=== PATIENT | female | born 1955 | race Caucasian/White ===

== ENCOUNTER → 2019-04-12 09:03 | Outpatient (CLI) | payer MEDICARE, OTHER, SELFPAY ==
[2019-04-12 10:05] LABS: Hematocrit 42.2 % (36-46); Hemoglobin 14.1 g/dL (12.0-16.0); Mean Corpuscular HGB Conc 33.5 % (30-36); Mean Corpuscular Hemoglobin 29.2 PG (26-34); Platelet Count 305 X10^3/uL (150-400); Red Blood Cell Count 4.85 X10^6/uL (4.0-5.2); Red Cell Distribution Width 14.4 % (11.6-14.8); White Blood Cell Count 6.8 X10^3/uL (4.5-11.0)
[2019-04-12 10:36] LABS: Alanine Aminotransferase 29 IU/L (9-52); Albumin 4.1 g/dL (3.5-5.0); Albumin Globulin Ratio 1.3 (1.0-2.8); Alkaline Phosphatase 67 U/L (38-126); Aspartate Aminotransferase 33 IU/L (14-36); BUN Creatinine Ratio 26.7 (6-22); Bilirubin Total 0.6 mg/dL (0.2-1.3); Blood Urea Nitrogen 16 mg/dL (7-17); Calcium 9.4 mg/dL (8.4-10.2); Carbon Dioxide 29 mmol/L (22-32); Chloride 104 mmol/L (98-107); Cholesterol 170 mg/dL (140-199); Estimated Glomerular Filt Rate > 60.0 mL/min (>60); Globulin 3.1 g/dL (1.7-4.1); Glucose 100 mg/dL (80-110); HDL Cholesterol 66 mg/dL (40-60); HEMOLYSIS < 15 (0-50); LDL Cholesterol Calculated 91 mg/dL (<100); Potassium 4.1 mmol/L (3.4-5.1); Sodium 140 mmol/L (137-145); Total Protein 7.2 g/dL (6.3-8.2); Triglycerides 64 mg/dL (35-150)
[2019-04-12 10:47] LABS: Hemoglobin A1C% w Est Avg Glu 5.4 % (4.0-6.0)
[2019-04-12 11:38] LABS: Thyroid Stimulating Hormone 1.75 uIU/mL (0.47-4.68)
== END ==
PROVIDERS: Family Provider Physician Assistant; PCP Physician Assistant; Visit Provider Nurse Practitioner Family
DX: E03.9 Hypothyroidism, unspecified (principal); R73.01 Impaired fasting glucose; Z13.6 Encounter for screening for cardiovascular disorders
CPT/HCPCS: 80053; 80061; 83036; 84439; 84443; 85027

== ENCOUNTER → 2019-08-04 08:19 | Outpatient (CLI) | payer MEDICARE, OTHER, SELFPAY ==
[2019-08-04 09:34] LABS: Add Manual Diff / Slide Review NO; Basophils Absolute Auto 0 /uL (0-100); Basophils Percent Auto 0.7 % (0-2); Eosinophils Absolute Auto 300 /uL (0-450); Eosinophils Percent Auto 3.6 % (2-4); Hematocrit 42.3 % (36-46); Hemoglobin 14.3 g/dL (12.0-16.0); Lymphocytes Absolute Auto 2400 /uL (1100-4500); Mean Corpuscular HGB Conc 33.9 % (30-36); Mean Corpuscular Hemoglobin 29.4 PG (26-34); Mean Corpuscular Volume 86.6 fL (80-100); Monocytes Absolute Auto 600 /uL (0-900); Monocytes Percent Auto 8.2 % (3-14); Neutrophils Absolute Auto 3900 /uL (1500-7000); Neutrophils Percent Auto 54.5 % (50-75); Platelet Count 305 X10^3/uL (150-400); Red Blood Cell Count 4.88 X10^6/uL (4.0-5.2); Red Cell Distribution Width 14.3 % (11.6-14.8); White Blood Cell Count 7.2 X10^3/uL (4.5-11.0)
[2019-08-04 09:46] LABS: BUN Creatinine Ratio 23.3 (6-22); Blood Urea Nitrogen 14 mg/dL (7-17); Calcium 9.6 mg/dL (8.4-10.2); Carbon Dioxide 29 mmol/L (22-32); Chloride 104 mmol/L (98-107); Estimated Glomerular Filt Rate > 60.0 mL/min (>60); Glucose 103 mg/dL (80-110); HEMOLYSIS < 15 (0-50); Potassium 4.1 mmol/L (3.4-5.1); Sodium 139 mmol/L (137-145)
[2019-08-04 10:08] LABS: Thyroid Stimulating Hormone 3.71 uIU/mL (0.47-4.68)
== END ==
PROVIDERS: PCP Physician Assistant; Visit Provider Physician Assistant
DX: Z01.818 Encounter for other preprocedural examination (principal)
CPT/HCPCS: 36415; 80048; 84443; 85025; 93005; 93010

== ENCOUNTER → 2020-08-23 08:12 | Outpatient (CLI) | payer MEDICARE, OTHER, SELFPAY ==
[2020-08-23 09:33] LABS: Add Manual Diff / Slide Review NO; Basophils Absolute Auto 0 /uL (0-100); Basophils Percent Auto 0.6 % (0-2); Eosinophils Absolute Auto 300 /uL (0-450); Eosinophils Percent Auto 3.9 % (2-4); Hematocrit 41.9 % (36-46); Hemoglobin 13.8 g/dL (12.0-16.0); Lymphocytes Absolute Auto 2200 /uL (1100-4500); Lymphocytes Percent Auto 29.8 % (25-40); Mean Corpuscular Hemoglobin 28.9 PG (26-34); Mean Corpuscular Volume 87.6 fL (80-100); Monocytes Absolute Auto 600 /uL (0-900); Monocytes Percent Auto 7.6 % (3-14); Neutrophils Absolute Auto 4200 /uL (1500-7000); Neutrophils Percent Auto 58.1 % (50-75); Platelet Count 289 X10^3/uL (150-400); Red Blood Cell Count 4.78 X10^6/uL (4.0-5.2); White Blood Cell Count 7.3 X10^3/uL (4.5-11.0)
[2020-08-23 09:54] LABS: Alanine Aminotransferase 21 IU/L (<35); Albumin Globulin Ratio 1.2 (1.0-2.8); Alkaline Phosphatase 73 U/L (38-126); Aspartate Aminotransferase 24 IU/L (14-36); BUN Creatinine Ratio 23.9 (6-22); Bilirubin Total 0.4 mg/dL (0.2-1.3); Blood Urea Nitrogen 16 mg/dL (7-17); Calcium 9.2 mg/dL (8.4-10.2); Carbon Dioxide 32 mmol/L (22-32); Chloride 104 mmol/L (98-107); Estimated Glomerular Filt Rate > 60.0 mL/min (>60); Globulin 3.3 g/dL (1.7-4.1); Glucose 109 mg/dL (80-110); HEMOLYSIS < 15 (0-50); Potassium 4.3 mmol/L (3.4-5.1); Sodium 138 mmol/L (137-145); Total Protein 7.3 g/dL (6.3-8.2)
[2020-08-23 10:14] LABS: Free T3, Triiodothyronine Free 4.58 pg/mL (2.77-5.27); Free T4, Direct Thyroxine 1.09 ng/dL (0.78-2.19)
[2020-08-23 10:28] LABS: Ferritin 63 ng/mL (11-264); Thyroid Stimulating Hormone 3.13 uIU/mL (0.47-4.68)
[2020-08-24 04:35] LABS: IGA 351 mg/dL (87-352); IGG 865 mg/dL (586-1602); IGM 48 mg/dL (26-217)
[2020-08-24 05:46] LABS: Thyroid Peroxidase Antibodies 11 IU/mL (0-34); Triiodothyronine T3 Total 141 ng/dL (71-180)
[2020-08-24 14:37] LABS: Anti Thyroglobulin Antibody <1.0 IU/mL (0.0-0.9)
[2020-08-25 12:49] LABS: EBV Ab VCA, IgM <36.0 U/mL (0.0-35.9)
[2020-08-28 18:41] LABS: Triiodothyronine T3 Reverse 18.3 ng/dL (9.2-24.1)
== END ==
PROVIDERS: PCP Physician Assistant; Referring Provider Family Medicine; Visit Provider Family Medicine
DX: R25.1 Tremor, unspecified (principal); E03.9 Hypothyroidism, unspecified; R53.82 Chronic fatigue, unspecified
CPT/HCPCS: 36415; 80053; 82728; 82784; 84439; 84443; 84480; 84481; 84482; 85025; 86376; 86663; 86664; 86665; 86800

== ENCOUNTER → 2020-09-08 15:18 | Outpatient (CLI) | payer MEDICARE, OTHER, SELFPAY | PROVIDERS: PCP Physician Assistant; Referring Provider Family Medicine; Visit Provider Family Medicine | DX: R53.83 Other fatigue (principal); R25.1 Tremor, unspecified | CPT/HCPCS: 36415 ==

== ENCOUNTER → 2020-10-22 13:42 | Outpatient (CLI) | payer MEDICARE, OTHER, SELFPAY ==
[2020-10-22 15:27] LABS: Bilirubin Urine UA NEGATIVE (NEGATIVE); Color Urine UA YELLOW; Glucose Urine UA NEGATIVE (Negative); Ketones Urine UA TRACE (NEGATIVE); Leukocyte Esterase Urine UA 1+ (NEGATIVE); Nitrite Urine UA POSITIVE (Negative); Occult Blood Urine UA 3+ (Negative); Protein Urine UA 1+ (Negative); Specific Gravity Urine UA 1.025 (1.000-1.035); Urobilinogen Urine UA 0.2 E.U./dL (0.2)
[2020-10-22 15:32] LABS: RBC Urine 10-30/HPF (0-5/HPF); Squamous Epithelial Cell Urine 5-10 /HPF (0-5/HPF); WBC Urine 5-10/HPF (0-5/HPF)
[2020-10-22 16:28] LABS: Appearance Urine UA Slightly Cloudy; pH Urine UA 5.5 (4.5-8.0)
[2020-10-22 16:32] LABS: Amorphous Sediment Urine 1+
[2020-10-22 16:33] LABS: Bacteria Urine Moderate (10-30); Culture Indicated Urine Specimen Cultured; Mucus Urine 1+ (Negative)
== END ==
PROVIDERS: PCP Physician Assistant; Referring Provider Family Medicine; Visit Provider Family Medicine
DX: R32 Unspecified urinary incontinence (principal); R30.0 Dysuria
CPT/HCPCS: 36415; 81001; 87077; 87086; 87186

== ENCOUNTER 2021-06-20 09:45 | Outpatient (RCR) | payer MEDICARE, OTHER, SELFPAY ==
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
--- NOTE | 2021-05-09 14:13 | PT.OPPOC ---
Physical, Occupational & Speech Therapy At [facility] Current Diagnoses Pain in left shoulder (05/09/21) Visit Care Team Role Provider Type Nilam Larson PA-C Family Provider Advanced Automated Access Systems Technician Primary Care Provider Specialty: Medical Address: [facility], [address] [place], [address] Email: [email or web address] Rafael Patton MD Attending Provider Physician Referring Provider Specialty: Orthopedic Surgery Address: [address] [place] [address], [id number] Email: [email or web address] Plan Of Care PT-OP-T Assessment and Plan Start: 05/09/21 08:05 Freq: Status: Active Protocol: Document 05/09/21 12:15 MB (Rec: 05/09/21 14:12 MB [id number]) Physical Therapy Assessment Rehab Potential Rehabilitation Potential Fair Evaluation Complexity Number of Personal Factors/Comorbidities 1-2 Number of Body Systems Impaired 1-2 Clinical Presentation at Evaluation Evolving Impairments Impairments Activity Tolerance,Balance, Functional Activities, Functional Mobility,Pain, Posture,ROM,Soft Tissue Mobility,Strength Other Impairments Personal factors include postural changes and pt with recent history of dizziness and BPPV. Body systems affected include musculoskeletal, neuromuscular and vestibular. She has a right arm tremor that has not been diagnosed. Her clinical presentation is evolving. Other Concerns Fall Risk Yes Goals 4 Customer Advocate Goal (LTG) Pt will perform progressive HEP with I including ROM, flexibility, postural, strengthening and balance exercises to improve function and safety by 07/08/21. LTG Duration 8 weeks 3 Customer Advocate Goal (LTG) Pt will present with improved left shoulder strength to at least 4/5 flexion, abduction, ER and IR to improve function by 07/08/21. LTG Duration 8 weeks 2 Mcfp Goal (LTG) Pt will report a 50% improvement in left shoulder pain with reaching for things and placing things overhead to improve function by 07/08/21. LTG Duration 8 weeks 1 Impairment QuickDASH score reflects 29.54 % impairment Customer Advocate Goal (LTG) Pt will present with an improved QuickDASH score to reflect no more than 20% impairment to improve functional mobility by . LTG Duration 8 weeks Assessment Summary Assessment Pt is a pleasant 66 y/o female presenting with postural changes, right UE tremor, decreased B shoulder ROM and B UE weakness. Pt is very proactive in her healthcare and she sees many specialists. It does not appear that she has one provider who has fully looked at her entire medical picture. PT is particularly concerned about right UE tremor, mask-like expression, cervical and other postural changes and history of right arm weakness and now left arm weakness and pain after fall and injury. She will benefit from PT to improve range, strength, pain and posture. Barriers to PT include multiple medical co- morbidities including a-fib, hypothyroidism, right UE changes as described, recent Gloria Dinero and postural changes. PT does include canalith repositioning maneuver in PT plan d/t recent BPPV and a recurrence could delay shoulder rehab and cause increase risk for falling. Physical Therapy Plan Frequency and Duration Frequency of Treatment 2x/Week Duration of Treatment 8 weeks Plan of Care Start Date 05/09/21 Plan of Care End Date 07/08/21 Therapeutic Interventions Therapeutic Interventions Aquatic Therapy,Balance Training,Canalithic Repositioning,Coordination Training,Home Exercise Program ,Joint Mobilizations,Manual Therapy,Neuromuscular Re- education,Patient/Caregiver Education,Self-Care/Home Management,Soft Tissue Mobilization,Taping, Therapeutic Activities, Therapeutic Exercises Modalities Cold Pack/Ice Massage,Electric Stimulation,Hot Packs, Ultrasound Next Visit Focus/Plan Next Note Type Treatment Note Next Visit Plan Review the pool exercises she is doing at home currently, consider UBE Plan of Care Dates Plan of Care Start Date 05/09/21 Plan of Care End Date 07/08/21 Electronically Signed by: Robyn Connelly PT 05/09/21 [id number] Please Sign and Return: I have reviewed this Plan of Care and certify that the skilled therapy services above are required to meet the patient?s needs. Physician Signature Date Printed Name and Credentials Clinical Instructor Signature Printed Name and Credentials
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
== END 2021-08-16 08:53 ==
LOC: PHYS 09:45
PROVIDERS: Family Provider Physician Assistant; PCP Physician Assistant; Referring Provider Orthopaedic Surgery; Visit Provider Orthopaedic Surgery
DX: M25.512 Pain in left shoulder (principal)
CPT/HCPCS: 97110; 97112; 97140; 97161

== ENCOUNTER 2021-06-29 11:06 | Observation (INO) | payer MEDICARE, OTHER, SELFPAY ==
[2021-06-29] VITALS (81 sets, daily range): BP systolic 94–188; BP diastolic 53–93; PULSE 80–159; RESP 13–37; TEMP 36.4–37.1; O2SAT 90–100; BMI 29.2; BMI 29.1
--- NOTE | 2021-06-29 12:06 | ED.ARRPALP ---
HPI - Arrhythmia/Palpitations General Chief Complaint: Arrhythmia/Palpitations Stated Complaint: AFIB Time Seen by Provider: 06/29/21 11:48 Source: patient Mode of arrival: Ambulatory History of Present Illness HPI narrative: 66-year-old female. Has had a history of atrial fibrillation in the past. Is on carvedilol. Not on anticoagulation. States that is approximately 4 days ago she started feeling like her heart was beating fast. No shortness of breath. She has been taking all of her medications as directed. Related Data Home Medications Medication Instructions Recorded Confirmed aspirin 81 mg tablet,delayed 81 mg PO QDAY #0 08/07/17 06/29/21 release thyroid (pork) 90 mg tablet 65 mg PO QDAY #0 08/07/17 08/05/19 ([place] Thyroid) carvedilol 3.125 mg tablet (Coreg) 3.125 mg PO DAILY tab 04/03/19 06/29/21 cholecalciferol (vitamin D3) 125 5,000 unit PO DAILY 04/03/19 06/29/21 mcg (5,000 unit) capsule Allergies Allergy/AdvReac Type Severity Reaction Status Date / Time latex [LATEX] Allergy Mild RASH Verified 06/29/21 11:16 Sulfa (Sulfonamide Allergy Verified 06/29/21 11:16 Antibiotics) Review of Systems Constitutional Constitutional: Denies fever(s) and Denies headache(s) ENT Ears, Nose, Mouth, and Throat: Reports system reviewed and no additional complaints, except as documented, Denies dizziness and Denies headache(s) Cardiovascular Cardiovascular: Denies chest pain, Reports rapid heart rate and Denies dyspnea Respiratory Respiratory: Reports system reviewed and no additional complaints, except as documented and Denies dyspnea Gastrointestinal Gastrointestinal: Reports system reviewed and no additional complaints, except as documented Musculoskeletal Musculoskeletal: Reports system reviewed and no additional complaints, except as documented Integumentary/Breasts Skin/Breast: Reports system reviewed and no additional complaints, except as documented Neurologic Neurologic: Reports system reviewed and no additional complaints, except as documented, Denies dizziness and Denies headache(s) Hematologic/Lymphatic On Anticoagulants: No Allergic/Immunologic Allergic/Immunologic: Reports system reviewed and no additional complaints, except as documented Patient History Medical History (Updated 06/29/21 @ 16:42 by Krish Espinoza RN) Cataract (~2013) Gloria Dinero virus infection Essential tremor History of chicken pox (~1981) Measles (~1961) Mumps (~1959) Rosacea (~1994) Tinnitus (~2008) Surgical History (Updated 04/07/19 @ 14:24 by Randi Villalba CMA) H/O blepharoplasty (~2005) Status post arthroscopy Status post arthroscopy Family History (Updated 04/07/19 @ 14:19 by Randi Villalba CMA) Brother PTSD (post-traumatic stress disorder) Father Heart disease Mother Stroke Grandfather Brain aneurysm Grandmother Pneumonia Grandfather Heart attack Grandmother Stroke Social History marital status: household members: spouse 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) education level: college occupational status: employed travel history: other leisure activities: other other: WALK, TRAVEL seatbelt use: always water heater temp set < 120 deg: Yes working smoke detector in home: Yes fire extinguisher in home: Yes carbon monox detector in home: Yes firearms in home: Yes firearms unloaded and locked: Yes do you feel safe at home: Yes Smoking Status: Never smoker alcohol intake: current substance use type: does not use during the past year weight has: decreased > 10 lbs well-balanced diet: daily or most days caffeine: Yes (1/2 CUP COFFEE) eating out: rarely or never Type(s) of exercise: walking frequency: 3-4 times per week duration: 30-45 minutes/day additional social history: Vision deficiencies- cataracts awaiting surgery in spring Smoking Status: Never smoker alcohol intake frequency: holidays/special occasions only Substance Use Type: does not use Exam Initial Vital Signs Initial Vital Signs: Vital Signs Temperature 97.5 F L 06/29/21 11:17 Pulse Rate 80 06/29/21 11:17 Respiratory Rate 14 06/29/21 11:17 Blood Pressure 124/76 06/29/21 11:17 Pulse Oximetry 99 06/29/21 11:17 Const General: cooperative, comfortable and well developed Limitations: mental status not altered HENMT Head: normal to inspection and normocephalic Chest Chest: normal inspection of the chest Resp Effort & Inspection: normal respiratory effort Auscultation: clear to auscultation bilaterally Cardio Rate: tachycardic Rhythm: abnormal rhythm GI Inspection: non-distended Palpation: soft and No firm Skin General: no rashes or lesions noted Neuro General: patient alert and patient awake Extrem General: normal to inspection and capillary refill normal Psych Appearance: grossly normal and well kempt Course Orders Ordered: ED Orders 06/29/21 11:43 Complete Blood Count AUTO DIFF Stat Comprehensive Metabolic Panel Stat Magnesium Stat Partial Thromboplastin Time Stat Prothrombin Time INR Stat Thyroid Stimulating Hormone Stat Troponin & CK Cardiac Panel Stat 06/29/21 13:13 COVID19 - ADMIT ([employer] swab/PCR) Stat Sodium Chloride (Normal Saline 0.9%) 1,000 mls @ 125 mls/hr IV CONT CRISTOBAL Last Admin: 06/29/21 12:22 Dose: 125 mls/hr Documented by: CARISSA Diltiazem HCl 125 mg/ Dextrose 125 mls @ 5 mls/hr IV TITRATE CRISTOBAL; Protocol Last Titration: 06/29/21 14:58 Dose: 15 mg/hr, 15 mls/hr Documented by: Titration: 06/29/21 13:58 Dose: 10 mg/hr, 10 mls/hr Documented by: Admin: 06/29/21 12:54 Dose: 5 mg/hr, 5 mls/hr Documented by: CARISSA Discontinued Medications Diltiazem HCl (Diltiazem 5 Mg/Ml Sdv) 10 mg IV NOW ONE Stop: 06/29/21 12:11 Last Admin: 06/29/21 12:25 Dose: 10 mg Documented by: CARISSA Vital Signs Vital signs: Vital Signs - 8 hr 06/29/21 11:17 06/29/21 11:59 06/29/21 12:00 Temperature 97.5 F L Pulse Rate 80 153 H 159 H Respiratory Rate 14 18 19 Blood Pressure 124/76 Pulse Oximetry 99 98 98 06/29/21 12:01 06/29/21 12:05 06/29/21 12:10 Temperature Pulse Rate 158 H 152 H 146 H Respiratory Rate 18 23 14 Blood Pressure 115/65 Pulse Oximetry 99 97 98 06/29/21 12:15 06/29/21 12:20 06/29/21 12:25 Temperature Pulse Rate 149 H 150 H 152 H Respiratory Rate 19 26 H 22 Blood Pressure 115/65 Pulse Oximetry 98 96 96 06/29/21 12:30 06/29/21 12:35 06/29/21 12:37 Temperature Pulse Rate 151 H 142 H 103 H Respiratory Rate 14 15 18 Blood Pressure 98/61 94/66 Pulse Oximetry 98 97 98 06/29/21 12:38 06/29/21 12:40 06/29/21 12:49 Temperature Pulse Rate 103 H 101 H 109 H Respiratory Rate 17 19 Blood Pressure 100/55 L 116/56 L Pulse Oximetry 97 97 98 06/29/21 12:50 06/29/21 12:54 06/29/21 12:55 Temperature Pulse Rate 116 H 101 H 107 H Respiratory Rate 20 18 Blood Pressure 135/90 135/90 125/80 Pulse Oximetry 98 98 06/29/21 13:00 06/29/21 13:05 06/29/21 13:08 Temperature Pulse Rate 123 H 122 H 117 H Respiratory Rate 18 20 21 Blood Pressure 129/80 125/90 118/72 Pulse Oximetry 97 97 97 06/29/21 13:10 06/29/21 13:15 06/29/21 13:20 Temperature Pulse Rate 117 H 118 H 127 H Respiratory Rate 13 22 21 Blood Pressure 126/68 122/68 107/69 Pulse Oximetry 97 98 97 06/29/21 13:25 06/29/21 13:30 06/29/21 13:35 Temperature Pulse Rate 120 H 120 H 132 H Respiratory Rate 17 18 18 Blood Pressure 103/74 110/77 111/55 L Pulse Oximetry 97 98 96 MDM - Arrhythmia/Palpitations Lab Data Result diagrams: 06/29/21 11:43 06/29/21 11:43 Labs: Lab Results 06/29/21 06/29/21 06/29/21 Range/Units 11:43 11:43 11:43 WBC 8.4 (4.5-11.0) X10^3/uL RBC 4.97 (4.0-5.2) X10^6/uL Hgb 14.4 (12.0-16.0) g/dL Hct 42.9 (36-46) % MCV 86.4 (80-100) fL MCH 29.0 (26-34) PG MCHC 33.6 (30-36) % RDW 13.9 (11.6-14.8) % Plt Count 341 (150-400) X10^3/uL Neut % (Auto) 58.5 (50-75) % Lymph % (Auto) 32.2 (25-40) % Meagher % (Auto) 7.1 (3-14) % Eos % (Auto) 1.7 L (2-4) % Baso % (Auto) 0.5 (0-2) % Neut # (Auto) 4900 (9363-2059) /uL Lymph # (Auto) 2700 (2088-8886) /uL Meagher # (Auto) 600 (0-900) /uL Eos # (Auto) 100 (0-450) /uL Baso # (Auto) 0 (0-100) /uL PT 11.6 (10.1-12.7) SECONDS INR 1.0 (0.9-1.3) APTT 33 (26.4-36.2) SECONDS Sodium 141 (137-145) mmol/L Potassium 3.8 (3.4-5.1) mmol/L Chloride 107 (98-107) mmol/L Carbon Dioxide 27 (22-32) mmol/L BUN 17 (7-17) mg/dL Creatinine 0.75 (0.52-1.04) mg/dL Estimated GFR > 60.0 (>60) mL/min BUN/Creatinine Ratio 22.7 H (6-22) Glucose 122 H (80-110) mg/dL Calcium 9.3 (8.4-10.2) mg/dL Magnesium (1.6-2.3) mg/dL Total Bilirubin 0.6 (0.2-1.3) mg/dL AST 30 (14-36) IU/L ALT 23 (<35) IU/L Alkaline Phosphatase 67 (38-126) U/L Total Creatine Kinase (30-135) U/L CK-MB (CK-2) CK-MB (CK-2) Rel Index Troponin I (0.01-0.034) ng/mL Total Protein 7.4 (6.3-8.2) g/dL Albumin 4.3 (3.5-5.0) g/dL Globulin 3.1 (1.7-4.1) g/dL Albumin/Globulin Ratio 1.4 (1.0-2.8) TSH (0.47-4.68) uIU/mL SARS-CoV-2 (PCR) (Negative) 06/29/21 06/29/21 06/29/21 Range/Units 11:43 11:43 13:13 WBC (4.5-11.0) X10^3/uL RBC (4.0-5.2) X10^6/uL Hgb (12.0-16.0) g/dL Hct (36-46) % MCV (80-100) fL MCH (26-34) PG MCHC (30-36) % RDW (11.6-14.8) % Plt Count (150-400) X10^3/uL Neut % (Auto) (50-75) % Lymph % (Auto) (25-40) % Meagher % (Auto) (3-14) % Eos % (Auto) (2-4) % Baso % (Auto) (0-2) % Neut # (Auto) (3578-4896) /uL Lymph # (Auto) (9333-4098) /uL Meagher # (Auto) (0-900) /uL Eos # (Auto) (0-450) /uL Baso # (Auto) (0-100) /uL PT (10.1-12.7) SECONDS INR (0.9-1.3) APTT (26.4-36.2) SECONDS Sodium (137-145) mmol/L Potassium (3.4-5.1) mmol/L Chloride (98-107) mmol/L Carbon Dioxide (22-32) mmol/L BUN (7-17) mg/dL Creatinine (0.52-1.04) mg/dL Estimated GFR (>60) mL/min BUN/Creatinine Ratio (6-22) Glucose (80-110) mg/dL Calcium (8.4-10.2) mg/dL Magnesium 2.3 (1.6-2.3) mg/dL Total Bilirubin (0.2-1.3) mg/dL AST (14-36) IU/L ALT (<35) IU/L Alkaline Phosphatase (38-126) U/L Total Creatine Kinase 34 (30-135) U/L CK-MB (CK-2) TNP CK-MB (CK-2) Rel Index TNP Troponin I < 0.012 (0.01-0.034) ng/mL Total Protein (6.3-8.2) g/dL Albumin (3.5-5.0) g/dL Globulin (1.7-4.1) g/dL Albumin/Globulin Ratio (1.0-2.8) TSH 2.01 (0.47-4.68) uIU/mL SARS-CoV-2 (PCR) Negative (Negative) ECG Data Attestation: I personally reviewed and interpreted this ECG as follows: Prior ECG tracings: not available for review Interpretation: Atrial fibrillation Ventricular rate 147 Normal axis Normal QRS Normal QTC MDM Narrative Medical decision making narrative: Patient currently not on anticoagulation. Symptoms started approximately 4 days ago. She has had issues with atrial fibrillation in the past. Not hypotensive. Is in AFib with RVR here in the ER. Patient not a candidate for cardioversion. She is stable. Did discuss this with her. Will attempt rate control. Started on Cardizem. Improved rate somewhat however patient continues to be tachycardic and continues to be in atrial fibrillation. Discussed case with Dr. Celis with Internal Medicine. Will admit the patient for further evaluation and treatment. I did discuss the need for admission of the patient. She expressed understanding and agreement. Discharge Plan Departure Patient Disposition: Admitted As Inpatient Clinical Impression: Atrial fibrillation with RVR Admit Date/Time: 06/29/21 13:37 Admit Provider: Samra Celis
[2021-06-29 12:18] LABS: Add Manual Diff / Slide Review NO; Basophils Absolute Auto 0 /uL (0-100); Basophils Percent Auto 0.5 % (0-2); Eosinophils Absolute Auto 100 /uL (0-450); Eosinophils Percent Auto 1.7 % (2-4); Hematocrit 42.9 % (36-46); Hemoglobin 14.4 g/dL (12.0-16.0); Lymphocytes Absolute Auto 2700 /uL (1100-4500); Lymphocytes Percent Auto 32.2 % (25-40); Mean Corpuscular HGB Conc 33.6 % (30-36); Mean Corpuscular Volume 86.4 fL (80-100); Monocytes Absolute Auto 600 /uL (0-900); Monocytes Percent Auto 7.1 % (3-14); Neutrophils Absolute Auto 4900 /uL (1500-7000); Neutrophils Percent Auto 58.5 % (50-75); Platelet Count 341 X10^3/uL (150-400); Red Blood Cell Count 4.97 X10^6/uL (4.0-5.2); Red Cell Distribution Width 13.9 % (11.6-14.8); White Blood Cell Count 8.4 X10^3/uL (4.5-11.0)
[2021-06-29 12:19] LABS: Prothrombin Time 11.6 SECONDS (10.1-12.7)
[2021-06-29 12:22] LABS: PTT Partial Thromboplastin Tim 33 SECONDS (26.4-36.2)
[2021-06-29] MEDS: SODIUM CHLORIDE 0.9% 1,000 ML 125 ML IV (12:22)
[2021-06-29 12:24] LABS: Creatine Kinase 34 U/L (30-135); Magnesium 2.3 mg/dL (1.6-2.3)
[2021-06-29 12:25] LABS: Alanine Aminotransferase 23 IU/L (<35); Albumin 4.3 g/dL (3.5-5.0); Albumin Globulin Ratio 1.4 (1.0-2.8); Alkaline Phosphatase 67 U/L (38-126); Aspartate Aminotransferase 30 IU/L (14-36); BUN Creatinine Ratio 22.7 (6-22); Bilirubin Total 0.6 mg/dL (0.2-1.3); Blood Urea Nitrogen 17 mg/dL (7-17); Calcium 9.3 mg/dL (8.4-10.2); Carbon Dioxide 27 mmol/L (22-32); Chloride 107 mmol/L (98-107); Estimated Glomerular Filt Rate > 60.0 mL/min (>60); Globulin 3.1 g/dL (1.7-4.1); Glucose 122 mg/dL (80-110); HEMOLYSIS < 15 (0-50); Potassium 3.8 mmol/L (3.4-5.1); Sodium 141 mmol/L (137-145); Total Protein 7.4 g/dL (6.3-8.2)
[2021-06-29] MEDS: dilTIAZem 5 MG/ML SDV 10 MG IV (12:25)
[2021-06-29 12:37] LABS: Troponin I < 0.012 ng/mL (0.01-0.034)
[2021-06-29] MEDS: dilTIAZem 125 MG in DEXTROSE 5 % IN WATER 100 ML IV ×2 (12:54→22:48)
[2021-06-29 12:55] LABS: Thyroid Stimulating Hormone 2.01 uIU/mL (0.47-4.68)
--- NOTE | 2021-06-29 13:59 | PC.NURSE ---
Dilt increased to 10ml/hr, provider aware.
[2021-06-29 14:23] LABS: COVID19 - ADMIT (NP swab/PCR) Negative (Negative)
--- NOTE | 2021-06-29 17:57 | P.HP_ITS ---
History of Present Illness History of Present Illness Date Patient Seen: 06/29/21 Time Patient Seen: 17:57 Chief complaint: AFIB Narrative: The patient is a 66-year-old female with a history of paroxysmal atrial fibrillation, essential tremor, Ebstein Dinero virus infection, who was diagnosed with atrial fibrillation in 2007. The patient reports about 6 years ago she underwent DC cardioversion. Since that time she has had no further episodes of atrial fibrillation. She takes Coreg 3.125 daily. She takes aspirin 81 mg daily. And she is not anticoagulated. The patient reports that for the past 3 days she has been short of breath, tired, and has noted palpitations. She states that her symptoms previously resolved within 24 hours and as these did not resolve she presented to the emergency room for evaluation. In the emergency room she was found to be in atrial fibrillation with a rapid ventricular response rate. Her heart rate was 140. They initially started her on diltiazem at 5 milligrams/hour but as her heart rate remained elevated was increased to 15 milligrams/hour. The patient was admitted to the hospital for further evaluation. She denies any headache blurred vision or double vision, she has no chest pain, she does report palpitations, no nausea vomiting or diarrhea currently. She did have nausea earlier this week. She has had no hematemesis, no melena, no bright red blood per rectum, she denies any dysuria hematuria or pyuria. She denies any joint pains. Patient previously had vertigo but has none now. Patient is admitted to the hospital for inpatient treatment of atrial fibrillation with rapid ventricular response rate. Patient History Medical History Cataract (~2013) Gloria Dinero virus infection Essential tremor History of chicken pox (~1981) Measles (~1961) Mumps (~1959) Rosacea (~1994) Tinnitus (~2008) Surgical History H/O blepharoplasty (~2005) Status post arthroscopy Status post arthroscopy Family & Social History Family History Brother PTSD (post-traumatic stress disorder) Father Heart disease Mother Stroke Grandfather Brain aneurysm Grandmother Pneumonia Grandfather Heart attack Grandmother Stroke Social History: household members spouse other WALK, TRAVEL Safety & Behavioral: Feels Safe in Current Yes Environment Been Physically Hurt or No Threatened By a Person Suicidal Ideation Description None Suicide Plan Description No Plan Tobacco & Substance use: Smoking Status Never smoker alcohol intake current alcohol intake frequency a few times a week Substance Use Type does not use Meds Home Medications and Allergies Home Medications Medication Instructions Recorded Confirmed Type aspirin 81 mg tablet,delayed 81 mg PO QDAY #0 08/07/17 06/29/21 History release thyroid (pork) 90 mg tablet 65 mg PO QDAY #0 08/07/17 08/05/19 History ([place] Thyroid) carvedilol 3.125 mg tablet (Coreg) 3.125 mg PO DAILY tab 04/03/19 06/29/21 History cholecalciferol (vitamin D3) 125 5,000 unit PO DAILY 04/03/19 06/29/21 History mcg (5,000 unit) capsule Allergies Allergy/AdvReac Type Severity Reaction Status Date / Time latex [LATEX] Allergy Mild RASH Verified 06/29/21 11:16 Sulfa (Sulfonamide Allergy Verified 06/29/21 11:16 Antibiotics) Review of Systems Review of Systems Narrative: Ten point review of system is negative except as above Exam Vital Signs (past 8 hours): - 06/29/21 11:17 06/29/21 11:59 06/29/21 12:00 Temperature 97.5 F L Pulse Rate 80 153 H 159 H Respiratory Rate 14 18 19 Blood Pressure 124/76 Pulse Oximetry 99 98 98 06/29/21 12:01 06/29/21 12:05 06/29/21 12:10 Temperature Pulse Rate 158 H 152 H 146 H Respiratory Rate 18 23 14 Blood Pressure 115/65 Pulse Oximetry 99 97 98 06/29/21 12:15 06/29/21 12:20 06/29/21 12:25 Temperature Pulse Rate 149 H 150 H 152 H Respiratory Rate 19 26 H 22 Blood Pressure 115/65 Pulse Oximetry 98 96 96 06/29/21 12:30 06/29/21 12:35 06/29/21 12:37 Temperature Pulse Rate 151 H 142 H 103 H Respiratory Rate 14 15 18 Blood Pressure 98/61 94/66 Pulse Oximetry 98 97 98 06/29/21 12:38 06/29/21 12:40 06/29/21 12:49 Temperature Pulse Rate 103 H 101 H 109 H Respiratory Rate 17 19 Blood Pressure 100/55 L 116/56 L Pulse Oximetry 97 97 98 06/29/21 12:50 06/29/21 12:54 06/29/21 12:55 Temperature Pulse Rate 116 H 101 H 107 H Respiratory Rate 20 18 Blood Pressure 135/90 135/90 125/80 Pulse Oximetry 98 98 06/29/21 13:00 06/29/21 13:05 06/29/21 13:08 Temperature Pulse Rate 123 H 122 H 117 H Respiratory Rate 18 20 21 Blood Pressure 129/80 125/90 118/72 Pulse Oximetry 97 97 97 06/29/21 13:10 06/29/21 13:15 06/29/21 13:20 Temperature Pulse Rate 117 H 118 H 127 H Respiratory Rate 13 22 21 Blood Pressure 126/68 122/68 107/69 Pulse Oximetry 97 98 97 06/29/21 13:25 06/29/21 13:30 06/29/21 13:35 Temperature Pulse Rate 120 H 120 H 132 H Respiratory Rate 17 18 18 Blood Pressure 103/74 110/77 111/55 L Pulse Oximetry 97 98 96 06/29/21 13:40 06/29/21 13:45 06/29/21 13:50 Temperature Pulse Rate 120 H 145 H 122 H Respiratory Rate 19 25 H 17 Blood Pressure 103/56 L 111/75 128/83 Pulse Oximetry 97 97 97 06/29/21 13:55 06/29/21 14:00 06/29/21 14:05 Temperature Pulse Rate 130 H 129 H 131 H Respiratory Rate 17 18 21 Blood Pressure 144/72 H 148/78 H 131/60 Pulse Oximetry 98 98 97 06/29/21 14:10 06/29/21 14:15 06/29/21 14:20 Temperature Pulse Rate 139 H 146 H 153 H Respiratory Rate 19 16 37 H Blood Pressure 133/68 Pulse Oximetry 97 97 06/29/21 14:21 06/29/21 14:25 06/29/21 14:26 Temperature Pulse Rate 150 H 157 H 151 H Respiratory Rate 30 H 26 H 30 H Blood Pressure 116/72 125/87 Pulse Oximetry 96 98 06/29/21 14:30 06/29/21 14:31 06/29/21 14:35 Temperature Pulse Rate 142 H 146 H 135 H Respiratory Rate 22 22 29 H Blood Pressure 188/76 H Pulse Oximetry 98 98 98 06/29/21 14:36 06/29/21 14:40 06/29/21 14:45 Temperature Pulse Rate 122 H 131 H 142 H Respiratory Rate 26 H 22 23 Blood Pressure 117/60 112/64 Pulse Oximetry 98 97 97 06/29/21 14:46 06/29/21 14:50 06/29/21 14:55 Temperature Pulse Rate 129 H 132 H 128 H Respiratory Rate 20 22 22 Blood Pressure 111/93 H 114/64 115/53 L Pulse Oximetry 97 96 96 06/29/21 15:00 06/29/21 15:05 06/29/21 15:10 Temperature Pulse Rate 116 H 123 H 138 H Respiratory Rate 19 19 22 Blood Pressure 116/62 115/58 L 128/66 Pulse Oximetry 96 96 97 06/29/21 15:15 06/29/21 15:20 06/29/21 15:25 Temperature Pulse Rate 123 H 128 H 123 H Respiratory Rate 21 19 21 Blood Pressure 123/56 L 119/72 120/59 L Pulse Oximetry 97 96 96 06/29/21 15:30 06/29/21 15:35 06/29/21 15:36 Temperature Pulse Rate 122 H 116 H 114 H Respiratory Rate 17 23 20 Blood Pressure 118/55 L 131/56 L Pulse Oximetry 96 96 96 06/29/21 15:40 06/29/21 15:45 06/29/21 15:50 Temperature Pulse Rate 110 H 121 H 121 H Respiratory Rate 19 25 H 20 Blood Pressure 110/53 L 116/53 L Pulse Oximetry 96 95 96 06/29/21 15:52 06/29/21 15:55 06/29/21 16:00 Temperature Pulse Rate 117 H 142 H 123 H Respiratory Rate 22 21 24 Blood Pressure 126/75 150/60 H 149/65 H Pulse Oximetry 97 97 97 06/29/21 16:15 06/29/21 16:52 06/29/21 17:14 Temperature 98.7 F Pulse Rate 84 105 H Respiratory Rate 20 Blood Pressure Pulse Oximetry 100 96 06/29/21 17:15 06/29/21 17:20 06/29/21 17:25 Temperature Pulse Rate 104 H 109 H 105 H Respiratory Rate 19 21 19 Blood Pressure Pulse Oximetry 96 95 96 06/29/21 17:30 06/29/21 17:35 06/29/21 17:40 Temperature Pulse Rate 115 H 142 H 129 H Respiratory Rate 16 28 H 30 H Blood Pressure Pulse Oximetry 96 95 90 L 06/29/21 17:45 06/29/21 17:50 Temperature Pulse Rate 102 H 112 H Respiratory Rate 32 H 26 H Blood Pressure Pulse Oximetry 97 Oxygen Delivery Method Room Air Narrative Exam Narrative: Pleasant female resting comfortably in no obvious distress [facility] Other: HEENT: Normocephalic atraumatic, extraocular muscles are intact, sclerae anicteric, oropharynx is clear neck is supple without adenopathy or thyromegaly Patient michael has a erythematous rash across her face, suggestive of rosacea Resp Other: Lungs: Clear to auscultation Cardio Other: Cardiac exam: Irregularly irregular, normal S1-S2, 2/6 systolic ejection murmur GI Other: Abdomen: Soft nontender nondistended, no hepatosplenomegaly Skin Other: Multiple varicosities of the lower extremities Extrem Other: Extremities: No edema Objective ECG Impression: Atrial fibrillation Labs Result Diagrams: 06/29/21 11:43 06/29/21 11:43 Labs: Laboratory Results - last 24 hr 06/29/21 06/29/21 06/29/21 11:43 11:43 11:43 WBC 8.4 RBC 4.97 Hgb 14.4 Hct 42.9 MCV 86.4 MCH 29.0 MCHC 33.6 RDW 13.9 Plt Count 341 Neut % (Auto) 58.5 Lymph % (Auto) 32.2 [place] % (Auto) 7.1 Eos % (Auto) 1.7 L Baso % (Auto) 0.5 Neut # (Auto) 4900 Lymph # (Auto) 2700 [place] # (Auto) 600 Eos # (Auto) 100 Baso # (Auto) 0 PT 11.6 INR 1.0 APTT 33 Sodium 141 Potassium 3.8 Chloride 107 Carbon Dioxide 27 BUN 17 Creatinine 0.75 Estimated GFR > 60.0 BUN/Creatinine Ratio 22.7 H Glucose 122 H Calcium 9.3 Magnesium Total Bilirubin 0.6 AST 30 ALT 23 Alkaline Phosphatase 67 Total Creatine Kinase CK-MB (CK-2) CK-MB (CK-2) Rel Index Troponin I Total Protein 7.4 Albumin 4.3 Globulin 3.1 Albumin/Globulin Ratio 1.4 TSH SARS-CoV-2 (PCR) 06/29/21 06/29/21 06/29/21 11:43 11:43 13:13 WBC RBC Hgb Hct MCV MCH MCHC RDW Plt Count Neut % (Auto) Lymph % (Auto) [place] % (Auto) Eos % (Auto) Baso % (Auto) Neut # (Auto) Lymph # (Auto) [place] # (Auto) Eos # (Auto) Baso # (Auto) PT INR APTT Sodium Potassium Chloride Carbon Dioxide BUN Creatinine Estimated GFR BUN/Creatinine Ratio Glucose Calcium Magnesium 2.3 Total Bilirubin AST ALT Alkaline Phosphatase Total Creatine Kinase 34 CK-MB (CK-2) TNP CK-MB (CK-2) Rel Index TNP Troponin I < 0.012 Total Protein Albumin Globulin Albumin/Globulin Ratio TSH 2.01 SARS-CoV-2 (PCR) Negative Assessment & Plan Assessment & Plan narrative: Impression 1. 66-year-old female with a history of paroxysmal atrial fibrillation, hypothyroidism, Ebstein Dinero virus, admitted to the hospital with atrial fibrillation and rapid ventricular response rate * Patient is currently on a diltiazem drip * Will start metoprolol 25 mg twice daily * Will initiate Eliquis 5 mg twice daily for anticoagulation * Will obtain cardiac echo to evaluate LV function * Will check D-dimer although the patient is not hypoxic * Initial troponin is negative Hypothyroidism * TSH within normal limits, 2.01 * Continue [place] Thyroid Ebstein Dinero virus Patient reports she is a full code will note that her record accordingly Patient is admitted under observation status I have utilized all available methods to review update and confirm the patient's current medications. Time Spent With Patient Critical Care time: I spent a total of [] minutes of critical care time on this patient's care today; this time is exclusive of procedural time.
--- NOTE | 2021-06-29 18:27 | PC.NURSE ---
Pt admitted to rm 228 from ED at 1600. Pt arrived via gurney and stood, walked to BR to void and back to bed with steady gait. Pt is AO x4 and making needs known with clear, logical speech. Oriented to room, routine, fall risk , use of call light. Pt verbalizes understanding.
--- NOTE | 2021-06-29 19:26 | P.TELICUCN_ITS ---
History of Present Illness Consult details Chief complaint: AFIB :: Case was d/w bedside nurse Narrative: 66 yo female w h/o PAF presents with a few days of palpitations. She apparently went to her naturapath, but when her symptoms continued, she came to the ED. In the ED she was found to be in AF-RVR. She apparently has had a prvious episode of brief AF-RVR a number of years back where she underwent DC cardioversion. She has been free of symptoms since. She denies and CP or SOB. She was put on a cardizem infusion and admitted to the ICU. I was asked for help with management. [facility] Medical History Cataract (~2013) [place] Dinero virus infection Essential tremor History of chicken pox (~1981) Measles (~1961) Mumps (~1959) Rosacea (~1994) Tinnitus (~2008) Surgical History H/O blepharoplasty (~2005) Status post arthroscopy Status post arthroscopy Family History Brother PTSD (post-traumatic stress disorder) Father Heart disease Mother Stroke Grandfather Brain aneurysm Grandmother Pneumonia Grandfather Heart attack Grandmother Stroke Social History marital status: household members: spouse 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) education level: college occupational status: employed travel history: other leisure activities: other other: WALK, TRAVEL seatbelt use: always water heater temp set < 120 deg: Yes working smoke detector in home: Yes fire extinguisher in home: Yes carbon monox detector in home: Yes firearms in home: Yes firearms unloaded and locked: Yes do you feel safe at home: Yes Smoking Status: Never smoker alcohol intake: current substance use type: does not use during the past year weight has: decreased > 10 lbs well-balanced diet: daily or most days caffeine: Yes (1/2 CUP COFFEE) eating out: rarely or never Type(s) of exercise: walking frequency: 3-4 times per week duration: 30-45 minutes/day additional social history: Vision deficiencies- cataracts awaiting surgery in spring Current Medications Current Medications Medications: Home Medications aspirin 81 mg tablet,delayed release 81 mg PO QDAY #0 08/07/17 [History Confirmed 06/29/21] thyroid (pork) 90 mg tablet ([place] Thyroid) 65 mg PO QDAY #0 08/07/17 [History Confirmed 08/05/19] carvedilol 3.125 mg tablet (Coreg) 3.125 mg PO DAILY tab 04/03/19 [History Confirmed 06/29/21] cholecalciferol (vitamin D3) 125 mcg (5,000 unit) capsule 5,000 unit PO DAILY 04/03/19 [History Confirmed 06/29/21] Visit Medications (administered) Generic Name Dose Route Start Last Admin Trade Name Chrisq PRN Reason Stop Dose Admin Diltiazem HCl 125 mg/ Dextrose 125 mls @ 5 mls/hr 06/29/21 12:11 06/29/21 16:30 IV 15 mg/hr TITRATE CRISTOBAL 15 mls/hr Titration Protocol 5 MG/HR Exam Vital Signs (past 8 hours): - 06/29/21 11:59 06/29/21 12:00 06/29/21 12:01 Temperature Pulse Rate 153 H 159 H 158 H Respiratory Rate 18 19 18 Blood Pressure 115/65 Pulse Oximetry 98 98 99 06/29/21 12:05 06/29/21 12:10 06/29/21 12:15 Temperature Pulse Rate 152 H 146 H 149 H Respiratory Rate 23 14 19 Blood Pressure Pulse Oximetry 97 98 98 06/29/21 12:20 06/29/21 12:25 06/29/21 12:30 Temperature Pulse Rate 150 H 152 H 151 H Respiratory Rate 26 H 22 14 Blood Pressure 115/65 98/61 Pulse Oximetry 96 96 98 06/29/21 12:35 06/29/21 12:37 06/29/21 12:38 Temperature Pulse Rate 142 H 103 H 103 H Respiratory Rate 15 18 17 Blood Pressure 94/66 100/55 L Pulse Oximetry 97 98 97 06/29/21 12:40 06/29/21 12:49 06/29/21 12:50 Temperature Pulse Rate 101 H 109 H 116 H Respiratory Rate 19 20 Blood Pressure 116/56 L 135/90 Pulse Oximetry 97 98 98 06/29/21 12:54 06/29/21 12:55 12/15/21 13:00 Temperature Pulse Rate 101 H 107 H 123 H Respiratory Rate 18 18 Blood Pressure 135/90 125/80 129/80 Pulse Oximetry 98 97 06/29/21 13:05 06/29/21 13:08 06/29/21 13:10 Temperature Pulse Rate 122 H 117 H 117 H Respiratory Rate 20 21 13 Blood Pressure 125/90 118/72 126/68 Pulse Oximetry 97 97 97 06/29/21 13:15 06/29/21 13:20 06/29/21 13:25 Temperature Pulse Rate 118 H 127 H 120 H Respiratory Rate 22 21 17 Blood Pressure 122/68 107/69 103/74 Pulse Oximetry 98 97 97 06/29/21 13:30 06/29/21 13:35 06/29/21 13:40 Temperature Pulse Rate 120 H 132 H 120 H Respiratory Rate 18 18 19 Blood Pressure 110/77 111/55 L 103/56 L Pulse Oximetry 98 96 97 06/29/21 13:45 06/29/21 13:50 06/29/21 13:55 Temperature Pulse Rate 145 H 122 H 130 H Respiratory Rate 25 H 17 17 Blood Pressure 111/75 128/83 144/72 H Pulse Oximetry 97 97 98 06/29/21 14:00 06/29/21 14:05 06/29/21 14:10 Temperature Pulse Rate 129 H 131 H 139 H Respiratory Rate 18 21 19 Blood Pressure 148/78 H 131/60 133/68 Pulse Oximetry 98 97 97 06/29/21 14:15 06/29/21 14:20 06/29/21 14:21 Temperature Pulse Rate 146 H 153 H 150 H Respiratory Rate 16 37 H 30 H Blood Pressure 116/72 Pulse Oximetry 97 06/29/21 14:25 06/29/21 14:26 06/29/21 14:30 Temperature Pulse Rate 157 H 151 H 142 H Respiratory Rate 26 H 30 H 22 Blood Pressure 125/87 Pulse Oximetry 96 98 98 06/29/21 14:31 06/29/21 14:35 06/29/21 14:36 Temperature Pulse Rate 146 H 135 H 122 H Respiratory Rate 22 29 H 26 H Blood Pressure 188/76 H 117/60 Pulse Oximetry 98 98 98 06/29/21 14:40 06/29/21 14:45 06/29/21 14:46 Temperature Pulse Rate 131 H 142 H 129 H Respiratory Rate 22 23 20 Blood Pressure 112/64 111/93 H Pulse Oximetry 97 97 97 06/29/21 14:50 06/29/21 14:55 06/29/21 15:00 Temperature Pulse Rate 132 H 128 H 116 H Respiratory Rate 22 22 19 Blood Pressure 114/64 115/53 L 116/62 Pulse Oximetry 96 96 96 06/29/21 15:05 06/29/21 15:10 06/29/21 15:15 Temperature Pulse Rate 123 H 138 H 123 H Respiratory Rate 19 22 21 Blood Pressure 115/58 L 128/66 123/56 L Pulse Oximetry 96 97 97 06/29/21 15:20 06/29/21 15:25 06/29/21 15:30 Temperature Pulse Rate 128 H 123 H 122 H Respiratory Rate 19 21 17 Blood Pressure 119/72 120/59 L 118/55 L Pulse Oximetry 96 96 96 06/29/21 15:35 06/29/21 15:36 06/29/21 15:40 Temperature Pulse Rate 116 H 114 H 110 H Respiratory Rate 23 20 19 Blood Pressure 131/56 L 110/53 L Pulse Oximetry 96 96 96 06/29/21 15:45 06/29/21 15:50 06/29/21 15:52 Temperature Pulse Rate 121 H 121 H 117 H Respiratory Rate 25 H 20 22 Blood Pressure 116/53 L 126/75 Pulse Oximetry 95 96 97 06/29/21 15:55 06/29/21 16:00 06/29/21 16:15 Temperature Pulse Rate 142 H 123 H 84 Respiratory Rate 21 24 Blood Pressure 150/60 H 149/65 H Pulse Oximetry 97 97 100 06/29/21 16:52 06/29/21 17:14 06/29/21 17:15 Temperature 98.7 F Pulse Rate 105 H 104 H Respiratory Rate 20 19 Blood Pressure Pulse Oximetry 96 96 06/29/21 17:20 06/29/21 17:25 06/29/21 17:30 Temperature Pulse Rate 109 H 105 H 115 H Respiratory Rate 21 19 16 Blood Pressure Pulse Oximetry 95 96 96 06/29/21 17:35 06/29/21 17:40 06/29/21 17:45 Temperature Pulse Rate 142 H 129 H 102 H Respiratory Rate 28 H 30 H 32 H Blood Pressure Pulse Oximetry 95 90 L 97 06/29/21 17:50 06/29/21 18:00 Temperature Pulse Rate 112 H 102 H Respiratory Rate 26 H 24 Blood Pressure 111/77 Pulse Oximetry Oxygen Delivery Method Room Air Objective Labs Result Diagrams: 06/29/21 11:43 06/29/21 11:43 Labs: Laboratory Results - last 24 hr 06/29/21 06/29/21 06/29/21 11:43 11:43 11:43 WBC 8.4 RBC 4.97 Hgb 14.4 Hct 42.9 MCV 86.4 MCH 29.0 MCHC 33.6 RDW 13.9 Plt Count 341 Neut % (Auto) 58.5 Lymph % (Auto) 32.2 [place] % (Auto) 7.1 Eos % (Auto) 1.7 L Baso % (Auto) 0.5 Neut # (Auto) 4900 Lymph # (Auto) 2700 [place] # (Auto) 600 Eos # (Auto) 100 Baso # (Auto) 0 PT 11.6 INR 1.0 APTT 33 Sodium 141 Potassium 3.8 Chloride 107 Carbon Dioxide 27 BUN 17 Creatinine 0.75 Estimated GFR > 60.0 BUN/Creatinine Ratio 22.7 H Glucose 122 H Calcium 9.3 Magnesium Total Bilirubin 0.6 AST 30 ALT 23 Alkaline Phosphatase 67 Total Creatine Kinase CK-MB (CK-2) CK-MB (CK-2) Rel Index Troponin I Total Protein 7.4 Albumin 4.3 Globulin 3.1 Albumin/Globulin Ratio 1.4 TSH Nasal Screen MRSA (PCR) SARS-CoV-2 (PCR) 06/29/21 06/29/21 06/29/21 11:43 11:43 13:13 WBC RBC Hgb Hct MCV MCH MCHC RDW Plt Count Neut % (Auto) Lymph % (Auto) [place] % (Auto) Eos % (Auto) Baso % (Auto) Neut # (Auto) Lymph # (Auto) [place] # (Auto) Eos # (Auto) Baso # (Auto) PT INR APTT Sodium Potassium Chloride Carbon Dioxide BUN Creatinine Estimated GFR BUN/Creatinine Ratio Glucose Calcium Magnesium 2.3 Total Bilirubin AST ALT Alkaline Phosphatase Total Creatine Kinase 34 CK-MB (CK-2) TNP CK-MB (CK-2) Rel Index TNP Troponin I < 0.012 Total Protein Albumin Globulin Albumin/Globulin Ratio TSH 2.01 Nasal Screen MRSA (PCR) SARS-CoV-2 (PCR) Negative 06/29/21 16:47 WBC RBC Hgb Hct MCV MCH MCHC RDW Plt Count Neut % (Auto) Lymph % (Auto) [place] % (Auto) Eos % (Auto) Baso % (Auto) Neut # (Auto) Lymph # (Auto) [place] # (Auto) Eos # (Auto) Baso # (Auto) PT INR APTT Sodium Potassium Chloride Carbon Dioxide BUN Creatinine Estimated GFR BUN/Creatinine Ratio Glucose Calcium Magnesium Total Bilirubin AST ALT Alkaline Phosphatase Total Creatine Kinase CK-MB (CK-2) CK-MB (CK-2) Rel Index Troponin I Total Protein Albumin Globulin Albumin/Globulin Ratio TSH Nasal Screen MRSA (PCR) Negative for mrsa SARS-CoV-2 (PCR) Assessment & Plan Assessment and plan (1) Atrial fibrillation with RVR: Status: Acute Plan: Pt on cardizem infusion and to start oral lopressor tonight. Agree w rate control as long as BP tolerates. Would give 40 meq KCL now Goal K > 4.0, M > 2.0 (2) Paroxysmal atrial fibrillation: Status: Chronic Plan: Pt has a CHADS2 score of 0 but a [id number] of 2 so she probably will benefit from OAC. Would defer to cadiology about terminal clerk antocoagulation COVID-19 COVID-19 status: Negative Result date/Date tested (Pos, Neg/Pending): 06/29/21 Time Spent With Patient Critical Care time: I spent a total of [] minutes of critical care time on this patient's care today; this time is exclusive of procedural time.
[2021-06-29] MEDS: APIXABAN 5 MG TABLET PO (21:11)
[2021-06-29] MEDS: METOPROLOL IR 25 MG TABLET PO (21:11)
[2021-06-29] MEDS: POTASSIUM CHLORIDE 20 MEQ TAB 40 MEQ PO (21:11)
[2021-06-30] VITALS (22 sets, daily range): BP systolic 104–131; BP diastolic 51–92; PULSE 79–135; RESP 16–31; TEMP 36.4–37.1; O2SAT 93–96
[2021-06-30 05:02] LABS: Hematocrit 39.7 % (36-46); Hemoglobin 13.5 g/dL (12.0-16.0); Mean Corpuscular Hemoglobin 29.3 PG (26-34); Mean Corpuscular Volume 86.4 fL (80-100); Platelet Count 287 X10^3/uL (150-400); Red Cell Distribution Width 14.1 % (11.6-14.8); White Blood Cell Count 8.3 X10^3/uL (4.5-11.0)
[2021-06-30 05:06] LABS: BUN Creatinine Ratio 18.8 (6-22); Blood Urea Nitrogen 13 mg/dL (7-17); Calcium 9.2 mg/dL (8.4-10.2); Carbon Dioxide 26 mmol/L (22-32); Chloride 109 mmol/L (98-107); Estimated Glomerular Filt Rate > 60.0 mL/min (>60); Glucose 109 mg/dL (80-110); HEMOLYSIS < 15 (0-50); Potassium 4.1 mmol/L (3.4-5.1); Sodium 141 mmol/L (137-145)
[2021-06-30 05:26] LABS: Magnesium 2.2 mg/dL (1.6-2.3)
--- NOTE | 2021-06-30 06:08 | PC.NURSE ---
0600- Diltiazem gtt at 5cc/hr. AFIB/CVR vitals are stable. Blood thinner started per order. No dizziness or Sob with mobilization. Labs reviewed. Will monitor.
[2021-06-30] MEDS: THYROID, PORK 30 MG TABLET 60 MG PO (06:13)
[2021-06-30] MEDS: APIXABAN 5 MG TABLET PO ×2 (09:27→20:47)
[2021-06-30] MEDS: METOPROLOL ER 50 MG TABLET PO (09:27)
--- NOTE | 2021-06-30 10:16 | DI.ECHO.S_ITS ---
[facility] +---------+ : : [address] : : : : [id number] : : : : Phone: [phone]---------+ Echocardiogram Report + + :Name: AMARI ZHANG Study Date: 06/30/2021 Height: 64 in : :[facility] ReadingLocation: Weight: 169 lb : : Gender: Female BSA: 1.8 m2 : :: 1955 Age: 66 yrs BP: 125/79 mmHg: :Reason For Study: ATRIAL FIBRIALLATION : :Ordering Physician: BERNA, : :ALEXIA Performed By: Mary Arana : :Referring: ALEXIA CORONEL : + + Interpretation Summary Left ventricular systolic function remains normal with an estimated ejection fraction of 60 to 70% with considerable wcsv-ac-hcus variability due to rapid atrial fibrillation. There are no focal wall motion abnormalities identified. Left ventricular size and wall thickness appear normal. Diastolic function cannot be assessed because of rapid atrial fibrillation but there is no compelling evidence for elevated filling pressures. There has been no significant change since her previous study. The right ventricle appears normal and unchanged from previous exam. Right ventricular systolic pressure cannot be estimated but CVP is likely around 3 mmHg. Both atria are normal in size and grossly unchanged from the previous study. There is no significant valvular abnormality. The ascending aorta is borderline enlarged and measures slightly larger compared to the previous study. The patient was in rapid atrial fibrillation at 108 to 130 bpm during the exam, new from the previous study. Procedure: A two-dimensional transthoracic echocardiogram with color flow and Doppler was performed. The study quality was technically difficult. Comparison is made with the echocardiogram of 09/24/2013. The patient was in atrial fibrillation with heart rates between 108-130 bpm during the exam. Left Ventricle: The left ventricle appears normal in size, wall thickness, and systolic function without any focal wall motion abnormalities. Left ventricular ejection fraction is estimated to be 60 to 70% with considerable ihme-em-oczy variability due to rapid atrial fibrillation. This is unchanged compared to the previous study. Diastolic function could not be accurately assessed due to atrial fibrillation. Right Ventricle: The right ventricle is normal in size and function. This is unchanged compared to the previous study. Atria: Both atria are normal in size. There is no Doppler evidence for an interatrial shunt. Mitral Valve: The mitral valve is normal in structure and function. There is trace mitral regurgitation. Aortic Valve: The aortic valve is trileaflet. The aortic valve is slightly calcified. The aortic valve opens well. There is no aortic valve stenosis. No aortic regurgitation is present. Tricuspid Valve: The tricuspid valve is normal in structure and function. There is trace tricuspid regurgitation. Pulmonary artery pressures cannot be estimated because of the lack of a measurable TR jet velocity but the IVC suggests a CVP of around 3 mmHg. Pulmonic Valve: The pulmonic valve leaflets are thin and pliable; valve motion is normal. There is trace pulmonic regurgitation. Great Vessels: The aortic root is normal size. The ascending aorta is at the upper limits of normal in size. The IVC is of normal diameter and collapses greater than 50% with a sniff. This suggests a low right atrial pressure of 3 mm Hg. Pericardium/ Pleura There is no pericardial effusion. There is no pleural effusion. MMode/2D Measurements & Calculations LVIDd: 3.7 cm LVOT diam: 2.0 cm LVIDs: 2.3 cm Ao root diam: 3.3 cm FS: 39.4 % asc Aorta Diam: 3.4 cm IVSd: 0.85 cm Ao Arch Diam (Prox Trans): 2.2 cm LVPWd: 1.1 cm LV frederick. diameter/BSA (cm/m^2): 2.0 LV sys. diameter/BSA (cm/m^2): 1.2 LA A2 area: 19.7 cm2 RA long axis: 4.5 cm LA A4 area: 12.5 cm2 RA area: 10.8 cm2 LA length (vol): 4.6 cm RA vol: 22.1 ml LA vol: 45.4 ml RA : 12.1 ml/m2 LA vol index: 25.0 ml/m2 IVC diam: 1.7 cm RVD1 (basal): 3.1 cm TAPSE: 2.2 cm Doppler Measurements & Calculations Ao V2 max: 107.7 cm/sec LVOT Max Carlos: 85.6 cm/sec Ao V2 mean: 73.1 cm/sec LV V1 max P.9 mmHg Ao max P.7 mmHg LV V1 VTI: 15.1 cm Ao mean P.5 mmHg TOM(I,D): 2.6 cm2 Ao V2 VTI: 18.4 cm TOM(V,D): 2.5 cm2 sev ratio: 0.82 TOM indexed to BSA (cm^2/m^2): 1.4 MV E max carlos: 120.3 cm/sec PA V2 max: 102.6 cm/sec MV A max carlos: 2.0 cm/sec PA V2 mean: 73.9 cm/sec MV E/A: 61.6 PA mean P.4 mmHg Med Peak E' Carlos: 8.2 cm/sec PA pr(Accel): 46.5 mmHg E/E' med: 14.7 Lat Peak E' Carlos: 9.3 cm/sec E/E' lat: 13.0 E/e' average: 13.8 MV dec time: 0.14 sec SV(LVOT): 47.6 ml Reading Physician:11:54 AM
--- NOTE | 2021-06-30 11:08 | PM.PN.1 ---
Subjective Subjective Date Patient Seen: 06/30/21 Interval history: 66 y/o female admitted with AFIB/RVR, shortness of breath, and fatigue. Patient has been on the dilt drip over night. She also received 25 mg of metoprolol. Her heart rate remains elevated with activity. She does not feel short of breath and has no complaints of chest pain. Exam Vital Signs (past 8 hours): - 06/30/21 04:00 06/30/21 05:00 06/30/21 07:00 Temperature Pulse Rate 93 H 124 H 89 Respiratory Rate 22 31 H 18 Blood Pressure 125/79 131/82 Pulse Oximetry 94 96 95 06/30/21 08:00 06/30/21 09:00 06/30/21 09:53 Temperature 98.7 F Pulse Rate 106 H 112 H Respiratory Rate 22 27 H Blood Pressure 117/81 116/83 Pulse Oximetry Oxygen Delivery Method Room Air Narrative Exam Narrative: Pleasant female lying in bed in no obvious distress Resp Other: Lungs clear to auscultation Cardio Other: Cardiac exam: Tachycardic irregularly irregular normal S1-S2 GI Other: Soft nontender nondistended Extrem Other: Extremity no edema Objective Labs Result Diagrams: 06/30/21 04:40 06/30/21 04:40 Labs: Laboratory Results - last 24 hr 06/29/21 06/29/21 06/29/21 11:43 11:43 11:43 WBC 8.4 RBC 4.97 Hgb 14.4 Hct 42.9 MCV 86.4 MCH 29.0 MCHC 33.6 RDW 13.9 Plt Count 341 Neut % (Auto) 58.5 Lymph % (Auto) 32.2 Newton % (Auto) 7.1 Eos % (Auto) 1.7 L Baso % (Auto) 0.5 Neut # (Auto) 4900 Lymph # (Auto) 2700 Newton # (Auto) 600 Eos # (Auto) 100 Baso # (Auto) 0 PT 11.6 INR 1.0 APTT 33 Sodium 141 Potassium 3.8 Chloride 107 Carbon Dioxide 27 BUN 17 Creatinine 0.75 Estimated GFR > 60.0 BUN/Creatinine Ratio 22.7 H Glucose 122 H Calcium 9.3 Magnesium Total Bilirubin 0.6 AST 30 ALT 23 Alkaline Phosphatase 67 Total Creatine Kinase CK-MB (CK-2) CK-MB (CK-2) Rel Index Troponin I Total Protein 7.4 Albumin 4.3 Globulin 3.1 Albumin/Globulin Ratio 1.4 TSH Nasal Screen MRSA (PCR) SARS-CoV-2 (PCR) 06/29/21 06/29/21 06/29/21 11:43 11:43 13:13 WBC RBC Hgb Hct MCV MCH MCHC RDW Plt Count Neut % (Auto) Lymph % (Auto) Newton % (Auto) Eos % (Auto) Baso % (Auto) Neut # (Auto) Lymph # (Auto) Newton # (Auto) Eos # (Auto) Baso # (Auto) PT INR APTT Sodium Potassium Chloride Carbon Dioxide BUN Creatinine Estimated GFR BUN/Creatinine Ratio Glucose Calcium Magnesium 2.3 Total Bilirubin AST ALT Alkaline Phosphatase Total Creatine Kinase 34 CK-MB (CK-2) TNP CK-MB (CK-2) Rel Index TNP Troponin I < 0.012 Total Protein Albumin Globulin Albumin/Globulin Ratio TSH 2.01 Nasal Screen MRSA (PCR) SARS-CoV-2 (PCR) Negative 06/29/21 06/30/21 06/30/21 16:47 04:40 04:40 WBC RBC Hgb Hct MCV MCH MCHC RDW Plt Count Neut % (Auto) Lymph % (Auto) Newton % (Auto) Eos % (Auto) Baso % (Auto) Neut # (Auto) Lymph # (Auto) Newton # (Auto) Eos # (Auto) Baso # (Auto) PT INR APTT Sodium 141 Potassium 4.1 Chloride 109 H Carbon Dioxide 26 BUN 13 Creatinine 0.69 Estimated GFR > 60.0 BUN/Creatinine Ratio 18.8 Glucose 109 Calcium 9.2 Magnesium 2.2 Total Bilirubin AST ALT Alkaline Phosphatase Total Creatine Kinase CK-MB (CK-2) CK-MB (CK-2) Rel Index Troponin I Total Protein Albumin Globulin Albumin/Globulin Ratio TSH Nasal Screen MRSA (PCR) Negative for mrsa SARS-CoV-2 (PCR) 06/30/21 04:40 WBC 8.3 RBC 4.60 Hgb 13.5 Hct 39.7 MCV 86.4 MCH 29.3 MCHC 34.0 RDW 14.1 Plt Count 287 Neut % (Auto) Lymph % (Auto) Newton % (Auto) Eos % (Auto) Baso % (Auto) Neut # (Auto) Lymph # (Auto) Newton # (Auto) Eos # (Auto) Baso # (Auto) PT INR APTT Sodium Potassium Chloride Carbon Dioxide BUN Creatinine Estimated GFR BUN/Creatinine Ratio Glucose Calcium Magnesium Total Bilirubin AST ALT Alkaline Phosphatase Total Creatine Kinase CK-MB (CK-2) CK-MB (CK-2) Rel Index Troponin I Total Protein Albumin Globulin Albumin/Globulin Ratio TSH Nasal Screen MRSA (PCR) SARS-CoV-2 (PCR) [facility] Medical History Cataract (~2013) Gloria Dinero virus infection Essential tremor History of chicken pox (~1981) Measles (~1961) Mumps (~1959) Rosacea (~1994) Tinnitus (~2008) Surgical History H/O blepharoplasty (~2005) Status post arthroscopy Status post arthroscopy Family History Brother PTSD (post-traumatic stress disorder) Father Heart disease Mother Stroke Grandfather Brain aneurysm Grandmother Pneumonia Grandfather Heart attack Grandmother Stroke Social History marital status: household members: spouse 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) education level: college occupational status: employed travel history: other leisure activities: other other: WALK, TRAVEL seatbelt use: always water heater temp set < 120 deg: Yes working smoke detector in home: Yes fire extinguisher in home: Yes carbon monox detector in home: Yes firearms in home: Yes firearms unloaded and locked: Yes do you feel safe at home: Yes Smoking Status: Never smoker alcohol intake: current substance use type: does not use during the past year weight has: decreased > 10 lbs well-balanced diet: daily or most days caffeine: Yes (1/2 CUP COFFEE) eating out: rarely or never Type(s) of exercise: walking frequency: 3-4 times per week duration: 30-45 minutes/day additional social history: Vision deficiencies- cataracts awaiting surgery in spring Assessment & Plan Assessment & Plan narrative: 1. 66-year-old female admitted to the hospital with AFib RVR -patient still remains tachycardic -Cardizem drip discontinue -will increase metoprolol to 50 b.i.d. -continue Eliquis 5 mg b.i.d. -echocardiogram pending 2. Hypothyroidism -continue [place] Thyroid 3. Patient to discharge home once heart rate has been controlled She will follow-up as an outpatient with Dr. Dior deleon to discuss DC cardioversion at some point in the future Time Spent With Patient Critical Care time: I spent a total of [] minutes of critical care time on this patient's care today; this time is exclusive of procedural time.
--- NOTE | 2021-06-30 11:11 | PC.NURSE ---
Called to hospitalist. Reported HR sustaining 120s post med administration with occ bursts to 140 (a fib). BP 118/70. Hospitalist states she will order lopressor 5 mg IVP q2hr PRN for HR sustaining greater than 120 bpm.
[2021-06-30] MEDS: METOPROLOL TARTRATE 5 MG/5 ML INJ IV ×3 (11:18→17:01)
--- NOTE | 2021-06-30 13:50 | CM.DANOTE ---
Discharge Assessment note Patient is 66yo Female admitted to due AFIB. Patient being monitored to decrease heart rate with medications. Patient is expected to follow up with Dr. Gomez post discharge. Patient resides at home with spouse. Patient reports two story home but office upstairs is not utilized by her. Patient reports being fully independent at home and in community. Plan: patient is anticipated to discharge home with spouse providing transportation. No discharge planning needs identified. Ins: Medicare with secondary of [facility]. 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 No Advance Directives on File No History Provided By Patient,Medical Record Has Patient been admitted in last 30 No days? Prior Living Arrangements House Household Members spouse Type of transporation used prior to Drives own vehicle admit Independent with ADL's Yes Is patient alert and oriented? Yes Caregiver for Another No Barriers to Discharge No Discharge Plan Home Transportation Arrangement Referrals Initiated None needed Whiteboard Updated in Patient Room with Yes name and ext. # of Xm1 Tank Driver Review Status In Process Next Review Type Continued Stay Review
[2021-06-30] MEDS: dilTIAZem 30 MG TABLET PO ×3 (15:54→23:54)
[2021-06-30] MEDS: METOPROLOL IR 25 MG TABLET 50 MG PO (20:47)
[2021-06-30] MEDS: ZOLPIDEM 5 MG TABLET 10 MG PO (23:54)
[2021-07-01 01:00] VITALS: PULSE 90
[2021-07-01 05:00] VITALS: PULSE 87
[2021-07-01 06:15] VITALS: PULSE 96
[2021-07-01] MEDS: dilTIAZem 30 MG TABLET PO (06:15)
[2021-07-01] MEDS: THYROID, PORK 30 MG TABLET 60 MG PO (06:15)
[2021-07-01 06:37] VITALS: BP 115/56; PULSE 84; RESP 16; TEMP 36.2; O2SAT 96
--- NOTE | 2021-07-01 06:48 | PC.NURSE ---
0600- Patient states she slept very well after ambien. Heart rate remains AFib/CVR rate does go above 100 with activity. No complaints during the night.
[2021-07-01 07:11] LABS: Hematocrit 39.7 % (36-46); Hemoglobin 13.6 g/dL (12.0-16.0); Mean Corpuscular HGB Conc 34.3 % (30-36); Mean Corpuscular Hemoglobin 29.4 PG (26-34); Mean Corpuscular Volume 85.9 fL (80-100); Platelet Count 294 X10^3/uL (150-400); Red Blood Cell Count 4.62 X10^6/uL (4.0-5.2); Red Cell Distribution Width 13.9 % (11.6-14.8); White Blood Cell Count 8.8 X10^3/uL (4.5-11.0)
[2021-07-01 07:24] LABS: BUN Creatinine Ratio 25.8 (6-22); Blood Urea Nitrogen 17 mg/dL (7-17); Calcium 9.1 mg/dL (8.4-10.2); Carbon Dioxide 25 mmol/L (22-32); Chloride 109 mmol/L (98-107); Estimated Glomerular Filt Rate > 60.0 mL/min (>60); Glucose 97 mg/dL (80-110); HEMOLYSIS < 15 (0-50); Sodium 137 mmol/L (137-145)
[2021-07-01 08:15] VITALS: BP 113/75; PULSE 89; RESP 17; TEMP 36.7; O2SAT 96
--- NOTE | 2021-07-01 08:17 | P.DS_ITS ---
History of Present Illness History of Present Illness Date Patient Seen: 07/01/21 Time Patient Seen: 08:17 Chief complaint: AFIB Narrative: History of Present Illness History of Present Illness Date Patient Seen:?06/29/21 Time Patient Seen:?17:57 Narrative: The patient is a 66-year-old female with a history of paroxysmal atrial fibrillation, essential tremor, Ebstein Dinero virus infection, who was diagnosed with atrial fibrillation in 2007.? The patient reports about 6 years ago she underwent DC cardioversion.? Since that time she has had no further episodes of atrial fibrillation.? She takes Coreg 3.125 daily.? She takes aspirin 81 mg daily.? And she is not anticoagulated.? The patient reports that for the past 3 days she has been short of breath, tired, and has noted palpitations.? She states that her symptoms previously resolved within 24 hours and as these did not resolve she presented to the emergency room for evaluation.? In the emergency room she was found to be in atrial fibrillation with a rapid ventric ular response rate.? Her heart rate was 140.? They initially started her on diltiazem at 5 milligrams/hour but as her heart rate remained elevated was increased to 15 milligrams/hour.? The patient was admitted to the hospital for further evaluation.? She denies any headache blurred vision or double vision, she has no chest pain, she does report palpitations, no nausea vomiting or diarrhea currently.? She did have nausea earlier this week.? She has had no hematemesis, no melena, no bright red blood per rectum, she denies any dysuria hematuria or pyuria.? She denies any joint pains.? Patient previously had vertigo but has none now.? Patient is admitted to the hospital for inpatient treatment of atrial fibrillation with rapid ventricular response rate. Discharge Providers Provider Date of admission: 06/29/21 13:37 Discharge Date: 07/01/21 Primary care physician: Nilam Larson PA-C Discharge provider: Tarah Sin DO Summary Hospital Course Discharge Diagnosis: PAROXYSMAL ATRIAL FIBRILLATION HYPOTHYROIDISM OBESITY. LIFESTYLE CHANGES RECOMMENDED Hospital Course: THIS IS A VERY PLEASANT 66-YEAR-OLD FEMALE WHO WAS ADMITTED TO THE HOSPITAL WITH ATRIAL FIBRILLATION WITH RAPID VENTRICULAR RATE. SHE DOES HAVE A HISTORY OF AFIB AND FOLLOW CARDIOLOGY OUTPATIENT. PATIENT WAS STARTED ON METOPROLOL AND CARDIZEM AND HAS RESPONDED VERY WELL TO MANAGEMENT. HER LABS HOW FAIRLY BENIGN. SHE WILL BE ON METOPROLOL LONG-ACTING 50 MG DAILY. THIS WILL REPLACE HER CARVEDILOL SHE ALSO WILL BE STARTED ON CARDIZEM 120 MG LONG-ACTING. SHE WILL NEED TO FOLLOW WITH PRIMARY CARE PHYSICIAN WELL A TECHNICAL APPLICATIONS SPECIALIST WITHIN 7-10 DAYS. SHE WILL NEED TO BE RE-EVALUATED AND HER MEDICATIONS ADJUSTED ACCORDINGLY AT THAT TIME. I SPOKE TO PATIENT THIS MORNING PRIOR TO DISCHARGE. HER QUESTIONS AND CONCERNS HAS BEEN ADDRESSED TO HER SATISFACTION AND UNDERSTANDING ADDITIONAL MANAGEMENT WILL BE DEFERRED TO OUTPATIENT PROVIDERS Status at Discharge Cognitive/behavioral status at discharge: oriented and at baseline, oriented Functional status at discharge: independent ambulation Overall status at discharge: patient is back to baseline Time Spent with Patient Time spent: Greater than 30 minutes Exam Vital Signs (past 8 hours): - 07/01/21 01:00 07/01/21 05:00 07/01/21 06:15 Temperature Pulse Rate 90 87 96 H Respiratory Rate Blood Pressure Pulse Oximetry 07/01/21 06:37 Temperature 97.1 F L Pulse Rate 84 Respiratory Rate 16 Blood Pressure 115/56 L Pulse Oximetry 96 Oxygen Delivery Method Room Air Oxygen Flow Rate 0 Narrative Exam Narrative: NO ACUTE DISTRESS. PATIENT IS ALERT ORIENTED X3. VITAL SIGNS STABLE HEAD ATRAUMATIC NORMOCEPHALIC NECK : SUPPLE WITHOUT ADENOPATHY NO CAROTID BRUITS EYE: EOMI, PERRLA, NORMAL CONJUNCTIVA; NO JAUNDICE CHEST: REGULAR RATE. NO RUBS. PMI IS NON DISPLACED. NO MURMURS; NORMAL S1- S2 PULMONARY: DECREASED BS OVER THE BASES. MILD BIBASILAR CRACKLES NOTED; NO INCREASED DULLNESS TO PERCUSSION ABDOMEN: SOFT. NONTENDER. NONDISTENDED. BOWEL SOUNDS ARE PRESENT IN ALL 4 QUADRANTS. NO MASS. EXTREMITIES: NO EDEMA.. NO CYANOSIS CLUBBING NOTED. NEURO: CRANIAL NERVES 2-12 GROSSLY INTACT. NO FOCAL NEUROLOGICAL DEFICIT NOTED. MSK: NORMAL RANGE OF MOTION FOR AGE. NO JOINT EFFUSION. SKIN: NORMAL FOR ETHNICITY; NO ECCHYMOSIS. NO LESION. GOOD TURGOR.; NO RASHES : NORMAL EXTERNAL GENITALIA. PSYCH : APPROPRIATE MOOD AND AFFECT. ALERT AWAKE ORIENTED X3 Objective Labs Result Diagrams: 07/01/21 06:44 07/01/21 06:44 Labs: Laboratory Results - last 24 hr 07/01/21 07/01/21 06:44 06:44 WBC 8.8 RBC 4.62 Hgb 13.6 Hct 39.7 MCV 85.9 MCH 29.4 MCHC 34.3 RDW 13.9 Plt Count 294 Sodium 137 Potassium 4.0 Chloride 109 H Carbon Dioxide 25 BUN 17 Creatinine 0.66 Estimated GFR > 60.0 BUN/Creatinine Ratio 25.8 H Glucose 97 Calcium 9.1 PFSH Medical History Cataract (~2013) Gloria Dinero virus infection Essential tremor History of chicken pox (~1981) Measles (~1961) Mumps (~1959) Rosacea (~1994) Tinnitus (~2008) Surgical History H/O blepharoplasty (~2005) Status post arthroscopy Status post arthroscopy Family History Brother PTSD (post-traumatic stress disorder) Father Heart disease Mother Stroke Grandfather Brain aneurysm Grandmother Pneumonia Grandfather Heart attack Grandmother Stroke Social History marital status: household members: spouse 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) education level: college occupational status: employed travel history: other leisure activities: other other: WALK, TRAVEL seatbelt use: always water heater temp set < 120 deg: Yes working smoke detector in home: Yes fire extinguisher in home: Yes carbon monox detector in home: Yes firearms in home: Yes firearms unloaded and locked: Yes do you feel safe at home: Yes Smoking Status: Never smoker alcohol intake: current substance use type: does not use during the past year weight has: decreased > 10 lbs well-balanced diet: daily or most days caffeine: Yes (1/2 CUP COFFEE) eating out: rarely or never Type(s) of exercise: walking frequency: 3-4 times per week duration: 30-45 minutes/day additional social history: Vision deficiencies- cataracts awaiting surgery in spring Discharge Plan Discharge Plan Patient Disposition: Home Nursing Discharge Comment: PATIENT TO CALL TECHNICAL APPLICATIONS SPECIALIST'S OFFICE FOR FOLLOW-UP APPOINTMENT WITHIN 7-10 DAY PLACED Discharge orders & Medications Prescriptions: New Eliquis 5 mg Tablet 5 mg PO BID Qty: 60 0RF diltiazem HCl 120 mg Capsule,Extended Release 24hr 120 mg PO DAILY Qty: 30 0RF metoprolol succinate 50 mg tablet extended release 24 hr 50 mg PO DAILY Qty: 30 0RF Continued thyroid (pork) [Allen Thyroid] 90 MG tablet 65 mg PO QDAY Qty: 0 0RF aspirin 81 MG tablet,delayed release (DR/EC) 81 mg PO QDAY Qty: 0 0RF cholecalciferol (vitamin D3) 5,000 unit capsule 5,000 unit PO DAILY 0RF Discontinued carvedilol [Coreg] 3.125 mg tablet 3.125 mg PO DAILY 0RF Follow up/Referrals: Nilam Larson, PAThiagoC [Primary Care Provider] - Prema Gomez MD [Physician] - (Call placed to clinic on 07/01/21 @ 3138. Spoke with Maia who is putting in a message to the provider to coordinate appt date/time. Clinic staff will contact you via phone with appt date/time. Hospitalist is recommending follow up appt in 7-10 days. ) Diet/Activity/Treatments Diet: Low-fat and Low-cholesterol Activity: NUHA Skin/Wound/Dressing Care Report to your healthcare provider any signs of infection, such as:: chills, fever and increased pain Visit Report/Discharge Packet Instructions: DI for Atrial Fibrillation, Metoprolol, Diltiazem Discharge Data Primary Care Provider: Nilam Larson Attending Provider: Samra Celis
[2021-07-01] MEDS: METOPROLOL IR 25 MG TABLET 50 MG PO (08:21)
[2021-07-01] MEDS: APIXABAN 5 MG TABLET PO (08:21)
[2021-07-01] MEDS: dilTIAZem CD 120 MG CAP PO (08:22)
[2021-07-01 09:40] VITALS: BP 113/75; PULSE 89; RESP 16
--- NOTE | 2021-07-01 09:57 | PC.NURSE ---
0915- Pt ambulated independently around the acute care unit and back to icu room. Pt being monitored on telemetry and HR remained 80-90, Afib. Pt denies any palpitations, chest pain/pressure/tightness, shortness of breath, dizziness/lightheadedness. Pt feels stable for dc at this point. Called to Dr. Gomez's office. Spoke with office staff to coordinate f/u appt in 7-10 days. Office staff state they will send a message to the provider and call pt back with appt time.
--- NOTE | 2021-07-01 11:48 | PC.NURSE ---
Provided d/c packet and educational material. Reviewed with pt in depth. Pt verbalizes understanding of teaching and has no questions at this time. Removed PIV and groundwater monitoring technician. Pt dressed self and gathered her belongings. RN escorted pt to POV via w/c with all belongings in no distress. DC time 1120.
[2021-07-01 17:35] LABS: Magnesium 2.2 mg/dL (1.6-2.3)
== END 2021-07-01 11:20 | disposition home or self-care (01) ==
LOC: ED 12:40 → AC 13:47 → ICU 06-30 08:08 → AC 06-30 08:20
PROVIDERS: Internal Medicine; Admitting Provider Internal Medicine; Emergency Provider Emergency Medicine; Family Provider Physician Assistant; PCP Physician Assistant; Referring Provider Emergency Medicine; Visit Provider Internal Medicine
DX: R00.2 Palpitations (principal); I48.0 Paroxysmal atrial fibrillation; E03.9 Hypothyroidism, unspecified; Z87.898 Personal history of other specified conditions; Z79.82 Long term (current) use of aspirin; E66.9 Obesity, unspecified; Z20.822 Contact with and (suspected) exposure to COVID-19
CPT/HCPCS: 36415; 80048; 80053; 82550; 83735; 84443; 84484; 85025; 85027; 85610; 85730; 87635; 87797; 93005; 93010; 93306; 96365; 96366; 96375; 99284; 99285; C9803; G0378

== ENCOUNTER 2021-08-16 22:30 | Emergency (ER) | payer MEDICARE, OTHER, SELFPAY ==
[2021-06-29 16:00] VITALS: BMI 29.1
--- NOTE | 2021-08-16 22:32 | ED_ITS ---
HPI - Chest Pain General Chief Complaint: Chest Pain Stated Complaint: mid chest pain Time Seen by Provider: 08/16/21 22:32 History of Present Illness HPI narrative: 66-year-old female nonsmoker with a history of atrial fibrillation on Eliquis presents with her significant other and a chief complaint of a sudden onset epigastric and right upper quadrant pain that started approximately 1 hour prior to her arrival. She has recently had some change in her atrial fibrillation and was actually cardioverted not long ago so this caused her some concern. Admittedly, the symptoms are significantly different than anything she experienced with atrial fibrillation. She denies any chest pain, palpitations, dizziness, weakness, lightheadedness or shortness of breath. She states that she had a very intense right upper quadrant pain that was present for about 1 hour, she denies any obvious radiation. She states the pain was worse when she moved and she was unable to find a position of comfort. She has had nausea but denies any vomiting. Her symptoms are improved, in fact nearly completely resolved by her arrival. She has had no change in diet or medications. She denies any constipation or diarrhea. She has had no dysuria, frequency or urgency. Related Data Home Medications Medication Instructions Recorded Confirmed aspirin 81 mg tablet,delayed 81 mg PO QDAY #0 08/07/17 06/29/21 release thyroid (pork) 90 mg tablet 65 mg PO QDAY #0 08/07/17 08/05/19 ([place] Thyroid) cholecalciferol (vitamin D3) 125 5,000 unit PO DAILY 04/03/19 06/29/21 mcg (5,000 unit) capsule Previous Rx's Medication Instructions Recorded apixaban 5 mg tablet (Eliquis) 5 mg PO BID #60 tab 07/01/21 diltiazem HCl 120 mg 120 mg PO DAILY #30 cap 07/01/21 capsule,extended release 24 hr metoprolol succinate 50 mg 50 mg PO DAILY #30 tab 07/01/21 tablet,extended release 24 hr Allergies Allergy/AdvReac Type Severity Reaction Status Date / Time latex [LATEX] Allergy Mild RASH Verified 06/29/21 11:16 Sulfa (Sulfonamide Allergy Verified 06/29/21 11:16 Antibiotics) Review of Systems Review of Systems Narrative: GENERAL: Denies chills, fatigue, malaise, fever, sweats. HEENT: Denies sinus pain, ear pain, sore throat, difficulty swallowing, dizziness. RESPIRATORY: Denies dyspnea, cough, wheezing, hemoptysis, sputum. CARDIOVASCULAR: Denies chest pain, palpitations, orthopnea, edema, GASTROINTESTINAL: See HPI : Denies dysuria, frequency, incontinence, hematuria, urinary retention. MUSCULOSKELETAL: denies weakness, joint pain, or bony pain SKIN: Denies rash, skin lesions, or other NEUROLOGIC: Denies weakness, headache, numbness, change in speech, confusion, seizures, incoordination. PSYCHIATRIC: No concerning psychosocial issues. 12 point review of systems is negative except for those stated above Patient History Medical History Cataract (~2013) Gloria Dinero virus infection Essential tremor History of chicken pox (~1981) Measles (~1961) Mumps (~1959) Rosacea (~1994) Tinnitus (~2008) Surgical History H/O blepharoplasty (~2005) Status post arthroscopy Status post arthroscopy Family History Brother PTSD (post-traumatic stress disorder) Father Heart disease Mother Stroke Grandfather Brain aneurysm Grandmother Pneumonia Grandfather Heart attack Grandmother Stroke Social History marital status: household members: spouse 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) education level: college occupational status: employed travel history: other leisure activities: other other: WALK, TRAVEL seatbelt use: always water heater temp set < 120 deg: Yes working smoke detector in home: Yes fire extinguisher in home: Yes carbon monox detector in home: Yes firearms in home: Yes firearms unloaded and locked: Yes do you feel safe at home: Yes Smoking Status: Never smoker alcohol intake: current substance use type: does not use during the past year weight has: decreased > 10 lbs well-balanced diet: daily or most days caffeine: Yes (1/2 CUP COFFEE) eating out: rarely or never Type(s) of exercise: walking frequency: 3-4 times per week duration: 30-45 minutes/day additional social history: Vision deficiencies- cataracts awaiting surgery in spring Smoking Status: Never smoker alcohol intake frequency: a few times a week Substance Use Type: does not use Exam Narrative Exam Narrative: GENERAL: [66] year old patient appears stated age. Well-developed patient, in mild distress. HEAD: Atraumatic. Normocephalic. EYES: Pupils equal round and reactive. Extraocular motions intact. No scleral icterus. No injection or drainage. ENT: Nose without bleeding, purulent drainage. Throat without erythema, tonsillar hypertrophy or exudate. Airway patent. NECK: Trachea midline. Non tender CARDIOVASCULAR: Regular rate and rhythm without murmurs, gallops, or rubs. RESPIRATORY: Clear to auscultation. Breath sounds equal bilaterally. No wheezes, rales, or rhonchi. GASTROINTESTINAL: Abdomen soft, non-tender, nondistended. EXTREMITIES: No edema or joint tenderness. BACK: Nontender without deformity or crepitance. No flank tenderness. NEURO: AOx3. SKIN: No rash or erythema of visible areas Initial Vital Signs Initial Vital Signs: Vital Signs Temperature 98.0 F 08/16/21 22:36 Pulse Rate 74 08/16/21 22:36 Respiratory Rate 22 08/16/21 22:36 Blood Pressure 186/87 H 08/16/21 22:36 Pulse Oximetry 100 08/16/21 22:36 Course Orders Ordered: ED Orders 08/16/21 22:40 EKG-12 Lead Stat 08/16/21 22:41 XR acute abdomen series Stat 08/16/21 22:45 Complete Blood Count AUTO DIFF Stat Comprehensive Metabolic Panel Stat Lipase Stat Troponin & CK Cardiac Panel Stat 08/16/21 23:10 US abdomen limited Stat 08/16/21 23:49 CT abdomen pelvis w con Stat Sodium Chloride (Normal Saline 0.9%) 1,000 mls @ 150 mls/hr IV CONT CRISTOBAL Last Admin: 08/16/21 23:24 Dose: 150 mls/hr Documented by: VERONIQUE Discontinued Medications Hydrocodone Bitart/Acetaminophen (Hydrocodone/Acet 5/325 Prepack) 1 bottle MISC SEEINSTR ONE Stop: 08/17/21 01:00 Ondansetron HCl (Ondansetron 4 Mg Odt Prepack) 1 bottle MISC SEEINSTR ONE Stop: 08/17/21 01:00 Vital Signs Vital signs: Vital Signs - 8 hr 08/16/21 22:36 Temperature 98.0 F Pulse Rate 74 Respiratory Rate 22 Blood Pressure 186/87 H Pulse Oximetry 100 MDM - Chest Pain Lab Data Result diagrams: 08/16/21 22:45 08/16/21 22:45 Labs: Lab Results 08/16/21 08/16/21 Range/Units 22:45 22:45 WBC 9.6 (4.5-11.0) X10^3/uL RBC 4.80 (4.0-5.2) X10^6/uL Hgb 14.2 (12.0-16.0) g/dL Hct 41.2 (36-46) % MCV 85.9 (80-100) fL MCH 29.5 (26-34) PG MCHC 34.3 (30-36) % RDW 13.9 (11.6-14.8) % Plt Count 276 (150-400) X10^3/uL Neut % (Auto) 48.7 L (50-75) % Lymph % (Auto) 38.9 (25-40) % [place] % (Auto) 8.2 (3-14) % Eos % (Auto) 3.4 (2-4) % Baso % (Auto) 0.8 (0-2) % Neut # (Auto) 4700 (9931-4483) /uL Lymph # (Auto) 3700 (1749-7463) /uL [place] # (Auto) 800 (0-900) /uL Eos # (Auto) 300 (0-450) /uL Baso # (Auto) 100 (0-100) /uL Sodium 138 (137-145) mmol/L Potassium 4.1 (3.4-5.1) mmol/L Chloride 104 (98-107) mmol/L Carbon Dioxide 33 H (22-32) mmol/L BUN 22 H (7-17) mg/dL Creatinine 0.62 (0.52-1.04) mg/dL Estimated GFR > 60.0 (>60) mL/min BUN/Creatinine Ratio 35.5 H (6-22) Glucose 102 (80-110) mg/dL Calcium 9.4 (8.4-10.2) mg/dL Total Bilirubin 0.5 (0.2-1.3) mg/dL AST 54 H (14-36) IU/L ALT 31 (<35) IU/L Alkaline Phosphatase 77 (38-126) U/L Total Creatine Kinase 47 (30-135) U/L CK-MB (CK-2) TNP CK-MB (CK-2) Rel Index TNP Troponin I < 0.012 (0.01-0.034) ng/mL Total Protein 7.7 (6.3-8.2) g/dL Albumin 4.2 (3.5-5.0) g/dL Globulin 3.5 (1.7-4.1) g/dL Albumin/Globulin Ratio 1.2 (1.0-2.8) Lipase 392 H (23-300) U/L Imaging Data CT scan - abdomen/pelvis: Radiologist's Impression: Launch?[address] [address] [address] Scan Report Signed Patient: Annamarie Gould MR#: [id number] : 1955 Acct:[id number] Age/Sex: 66 / F Date of Service: 08/16/21 Loc: ED Accession Number: [id number] ?? Procedure: CT abdomen pelvis w con Ordering Provider: Kavin Bhagat D.O. PROCEDURE:? CT ABDOMEN PELVIS W CON ? INDICATIONS:? epigastric pain,right upper quadrant pain,? pancreatitis ? TECHNIQUE:? After the administration of IV contrast, axial sections were acquired from the lung bases to the pubic symphysis.? Coronal and sagittal reformats were performed.? For radiation dose reduction, the following was used:? automated exposure control, adjustment of mA and/or kV according to patient size. ? COMPARISON:? None. ? FINDINGS:? Image quality:? Excellent.? ? Lung bases:? Unremarkable.? ? Heart:? No significant findings. ? ? ABDOMEN: Liver:? Liver is enlarged measuring 18.9 cm with steatosis. Gallbladder:? The gallbladder is distended with a large stone in the dependent portion.? There is no obstruction.? Wall thickness is at the upper limits of normal measuring approximately 2.8 mm. Biliary ducts:? Unremarkable.? ? Pancreas:? Unremarkable.? ? Spleen:? Unremarkable.? ? Adrenal Glands:? Unremarkable.? ? Kidneys and Ureters:? Unremarkable.? ? ? Stomach and Bowel:? Stomach, small bowel loops, and colon are unremarkable.? Peritoneum:? No abnormal intraperitoneal fluid.? No free air.? ? Ventral Wall: ? No hernia.? Abdominal Nodes:? No retroperitoneal or mesenteric adenopathy by size criteria.? Vessels:? Aorta and inferior vena cava are normal in size.? ? PELVIS: Pelvic Organs:? 4.5 cm low-attenuation focus is present within the left adnexa. Bladder:? Unremarkable.? ? Pelvic Nodes: No enlarged lymph nodes.? Miscellaneous: No inguinal hernias are seen. ? ? ? Bones:? Unremarkable.? IMPRESSION:? ? Prominent gallstone without obstruction and borderline wall thickening.? Overall appearance is most consistent with cholelithiasis with equivocal findings of cholecystitis.? Clinical correlation is recommended. ? Low-attenuation focus within the left adnexa suggestive of simple cyst.? Pelvic ultrasound in 6 weeks is recommended for evaluation of stability. ? Hepatomegaly with steatosis. ? ? Dictated by: Nathaly Valdez M.D. on 08/17/2021 at 0:28 ? ? Approved by: Nathaly Valdez M.D. on 08/17/2021 at 0:31 ? Chest x-ray: Radiologist's Impression: Chart Viewer Diagnostics Subcategory All Activity ??:?? All Time ??:?? All Subcategories Filter Laboratory Imaging Microbiology Pathology Blood Bank Tests Cardiovascular Other Specialty DATE TYPE STATUS REF RANGE/AUTHOR Hx 08/16/21 23:10 Abdomen Ultrasound ? 08/16/21 22:41 Chest/Abdomen X-ray Signed Nathaly Valdez 06/30/21 10:16 Echocardiogram Ultrasound Signed Florencio To 06/29/21 13:37 Telemetry Strips ? 06/29/21 13:37 Telemetry Strips ? 11/10/16 18:25 Radiology - Historical ? Annamarie Gould ED 66, F?1955 MRN#? [id number] REG ER,?Main ED??R11?? 80kg ? Chest Pain Acc#? [id number] Resus Status Not Ordered Hx Avail Special Indicators No Data to Display Home Meds Not Confirmed Prescription Monitoring Program MEDICATIONS (INSTRUCTIONS) LAST TAKEN Active ??apixaban [Eliquis] ??5 mgPOBID#60 tab ??aspirin ??81 mgPOQDAY#0 ??cholecalciferol (vitamin D3) 125 mcg (5,000 unit) capsule ??5,000 unitPODAILY ??diltiazem HCl ??120 mgPODAILY#30 cap ??metoprolol succinate ??50 mgPODAILY#30 tab ??thyroid (pork) [[place] Thyroid] ??65 mgPOQDAY#0 Allergies latex (LATEX) RASH Sulfa (Sulfonamide Antibiotics) Problems ? ONSET Atypical chest pain Hypothyroidism Paroxysmal atrial fibrillation Right shoulder pain Preoperative evaluation to rule out surgical contraindication Cataracts, bilateral Atrial fibrillation with RVR Vital Signs 08/16/21 22:36 BP 186/87?H Pulse 74? Resp 22? Temp 98.0 F? O2 Sat 100? Delivery Room Air? Diagnostics Reports Annamarie Gould??66??F??1955 ? Allergy/Adv: latex, Sulfa (Sulfonamide Antibiotics) (More??) Close Abdomen Ultrasound 08/16/21 Chest/Abdomen X-ray (Signed) Nathaly Valdez - 08/16/21 Echocardiogram Ultrasound (Signed) Florencio To - 06/30/21 Telemetry Strips 06/29/21 Telemetry Strips 06/29/21 Radiology - Historical 11/10/16 Launch?[place] [address] XRay Report Signed Patient: Annamarie Gould MR#: [id number] : 1955 Acct:[id number] Age/Sex: 66 / F Date of Service: 08/16/21 Loc: ED Accession Number: [id number] ?? Procedure: XR acute abdomen series Ordering Provider: Kavin Bhagat D.O. PROCEDURE:? XR ACUTE ABDOMEN SERIES ? INDICATIONS:? Abdominal pain ? TECHNIQUE:? One view chest and two views of the abdomen were acquired.? ? COMPARISON:? None. ? FINDINGS:? ? Surgical changes and devices:? None.? ? Chest:? Lungs are clear.? Heart size is .? No pleural effusions.? No pneumoperitoneum.? ? Abdomen:? Bowel gas pattern is nonobstructive.? Mild to moderate colonic stool particularly within the right colon.? No suspicious calcifications.? Visualized solid organ contours appear normal.? ? Bones:? No suspicious bony lesions.? ? IMPRESSION:? [id number]-[id number] stool without obstruction. ? ? Dictated by: Nathaly Valdez M.D. on 08/16/2021 at 23:11 ? ? Approved by: Nathaly Valdez M.D. on 08/16/2021 at 23:12 ? US - abdomen: Radiologist's Impression: [address] [address] Ultrasound Report Signed Patient: Annamarie Gould MR#: [id number] : 1955 Acct:[id number] Age/Sex: 66 / F Date of Service: 08/16/21 Loc: ED Accession Number: [id number] ?? Procedure: US abdomen limited Ordering Provider: Kavin Bhagat D.O. PROCEDURE:? US ABDOMEN LIMITED ? INDICATIONS:? RUQ PAIN; ACUTE PANCREATITIS ? TECHNIQUE:? Real-time scanning was performed of the abdominal and retroperitoneal organs, with image documentation.? ? COMPARISON:? [facility], CT, CT ABDOMEN PELVIS W CON, 08/16/2021, 23:51. ? FINDINGS:? ? Liver:? Liver is normal in size and homogeneous in echotexture.? ? Gallbladder:? Gallbladder demonstrates a nonobstructing non mobile focus of increased echogenicity.? Wall thickness is at the upper limits of normal measuring 2.9 mm.? Stone is in the dependent portion of the gallbladder.? Stone measures approximately 5.2 cm. ? Biliary ducts:? Intrahepatic bile ducts are non-dilated.? Extrahepatic bile duct caliber measures 4.6 mm.? Normal is 6-7 mm or less in diameter, or 10 mm or less post-cholecystectomy.? IMPRESSION:? ? Large focus of increased echogenicity most suggestive stone within the gallbladder.? There is borderline wall thickening.? Appearance is most consistent with cholelithiasis and equivocal for cholecystitis.? Clinical correlation is recommended. ? Dictated by: Nathaly Valdez M.D. on 08/17/2021 at 0:24 ? ? Approved by: Nathaly Valdez M.D. on 08/17/2021 at 0:27 ? MDM Narrative Medical decision making narrative: Patient with a relatively brief episode of epigastric and right upper quadrant pain that is worse with motion and improves with rest. She has no fever or chills and by the time she arrives her symptoms are gone. Ultrasound shows a 5 cm nonobstructing and nonmobile mass most consistent with a very large gallstone. CT confirms this. She does have a slightly elevated lipase but no ongoing pain. She is tolerating oral hydration without any difficulty and is asymptomatic for the duration of her visit. Extensive return precautions discussed with the patient and importance of close follow-up with General surgery. She has had her questions answered to her apparent satisfaction Discharge Plan Departure Patient Disposition: Home Clinical Impression: Gall stone Instructions: DI for Gallstones Activity Restrictions/Additional Instructions: *You have been diagnosed with [right upper quadrant pain, likely due to a large gallstone. There is no evidence of gallbladder disease, your labs are very reassuring, your pain is well controlled and your not vomiting. *What to do: *Please continue to take your regular medications as directed. [ ] New medication prescriptions sent to your pharmacy: [ ] [ ] New medication written as a paper prescription [ ] No new medications given *Please follow up with Dr. Corley at [facility], call for an appointment. Let them know you were seen in the Emergency Department and that we ask that you be seen in follow up. We will electronically transmit a record of today's note *please consider a clear liquid diet for the next 24-48 hours and as you move forward avoid fatty foods which are likely to at least potentially trigger another episode like tonight *Return to Emergency Department if you should have any new, worsening or concern ing symptoms, such as [fever greater than 101 F, shaking chills, worsening pain, persistent vomiting or other bothersome symptoms] Prescriptions: No Action thyroid (pork) [[place] Thyroid] 90 MG tablet 65 mg PO QDAY Qty: 0 0RF aspirin 81 MG tablet,delayed release (DR/EC) 81 mg PO QDAY Qty: 0 0RF cholecalciferol (vitamin D3) 5,000 unit capsule 5,000 unit PO DAILY 0RF Eliquis 5 mg Tablet 5 mg PO BID Qty: 60 0RF diltiazem HCl 120 mg Capsule,Extended Release 24hr 120 mg PO DAILY Qty: 30 0RF metoprolol succinate 50 mg tablet extended release 24 hr 50 mg PO DAILY Qty: 30 0RF Referrals: Bam Corley MD [Physician] - Nilam Larson PA-C [Primary Care Provider] -
[2021-08-16 22:36] VITALS: BP 186/87; PULSE 74; RESP 22; TEMP 36.7; O2SAT 100
--- NOTE | 2021-08-16 22:41 | DI.RAD.S_ITS ---
PROCEDURE: XR ACUTE ABDOMEN SERIES INDICATIONS: Abdominal pain TECHNIQUE: One view chest and two views of the abdomen were acquired. COMPARISON: None. FINDINGS: Surgical changes and devices: None. Chest: Lungs are clear. Heart size is . No pleural effusions. No pneumoperitoneum. Abdomen: Bowel gas pattern is nonobstructive. Mild to moderate colonic stool particularly within the right colon. No suspicious calcifications. Visualized solid organ contours appear normal. Bones: No suspicious bony lesions. IMPRESSION: Ognl-at-tvgpkiws stool without obstruction. Dictated by: Nathaly Valdez M.D. on 08/16/2021 at 23:11 Approved by: Nathaly Valdez M.D. on 08/16/2021 at 23:12
[2021-08-16 22:58] LABS: Add Manual Diff / Slide Review NO; Basophils Absolute Auto 100 /uL (0-100); Basophils Percent Auto 0.8 % (0-2); Eosinophils Absolute Auto 300 /uL (0-450); Eosinophils Percent Auto 3.4 % (2-4); Hematocrit 41.2 % (36-46); Hemoglobin 14.2 g/dL (12.0-16.0); Lymphocytes Absolute Auto 3700 /uL (1100-4500); Lymphocytes Percent Auto 38.9 % (25-40); Mean Corpuscular HGB Conc 34.3 % (30-36); Mean Corpuscular Hemoglobin 29.5 PG (26-34); Mean Corpuscular Volume 85.9 fL (80-100); Monocytes Absolute Auto 800 /uL (0-900); Monocytes Percent Auto 8.2 % (3-14); Neutrophils Absolute Auto 4700 /uL (1500-7000); Neutrophils Percent Auto 48.7 % (50-75); Platelet Count 276 X10^3/uL (150-400); Red Cell Distribution Width 13.9 % (11.6-14.8); White Blood Cell Count 9.6 X10^3/uL (4.5-11.0)
[2021-08-16 23:05] LABS: Alanine Aminotransferase 31 IU/L (<35); Albumin 4.2 g/dL (3.5-5.0); Albumin Globulin Ratio 1.2 (1.0-2.8); Alkaline Phosphatase 77 U/L (38-126); Aspartate Aminotransferase 54 IU/L (14-36); BUN Creatinine Ratio 35.5 (6-22); Bilirubin Total 0.5 mg/dL (0.2-1.3); Blood Urea Nitrogen 22 mg/dL (7-17); Calcium 9.4 mg/dL (8.4-10.2); Carbon Dioxide 33 mmol/L (22-32); Chloride 104 mmol/L (98-107); Creatine Kinase 47 U/L (30-135); Estimated Glomerular Filt Rate > 60.0 mL/min (>60); Globulin 3.5 g/dL (1.7-4.1); Glucose 102 mg/dL (80-110); HEMOLYSIS 44 (0-50); Lipase 392 U/L (23-300); Potassium 4.1 mmol/L (3.4-5.1); Sodium 138 mmol/L (137-145); Total Protein 7.7 g/dL (6.3-8.2)
--- NOTE | 2021-08-16 23:10 | DI.US.S_ITS ---
PROCEDURE: US ABDOMEN LIMITED INDICATIONS: RUQ PAIN; ACUTE PANCREATITIS TECHNIQUE: Real-time scanning was performed of the abdominal and retroperitoneal organs, with image documentation. COMPARISON: [facility], CT, CT ABDOMEN PELVIS W CON, 08/16/2021, 23:51. FINDINGS: Liver: Liver is normal in size and homogeneous in echotexture. Gallbladder: Gallbladder demonstrates a nonobstructing non mobile focus of increased echogenicity. Wall thickness is at the upper limits of normal measuring 2.9 mm. Stone is in the dependent portion of the gallbladder. Stone measures approximately 5.2 cm. Biliary ducts: Intrahepatic bile ducts are non-dilated. Extrahepatic bile duct caliber measures 4.6 mm. Normal is 6-7 mm or less in diameter, or 10 mm or less post-cholecystectomy. IMPRESSION: Large focus of increased echogenicity most suggestive stone within the gallbladder. There is borderline wall thickening. Appearance is most consistent with cholelithiasis and equivocal for cholecystitis. Clinical correlation is recommended. Dictated by: Nathaly Valdez M.D. on 08/17/2021 at 0:24 Approved by: Nathaly Valdez M.D. on 08/17/2021 at 0:27
[2021-08-16 23:16] LABS: Troponin I < 0.012 ng/mL (0.01-0.034)
[2021-08-16] MEDS: SODIUM CHLORIDE 0.9% 1,000 ML 150 ML IV (23:24)
--- NOTE | 2021-08-16 23:49 | DI.CT.S_ITS ---
PROCEDURE: CT ABDOMEN PELVIS W CON INDICATIONS: epigastric pain,right upper quadrant pain, pancreatitis TECHNIQUE: After the administration of IV contrast, axial sections were acquired from the lung bases to the pubic symphysis. Coronal and sagittal reformats were performed. For radiation dose reduction, the following was used: automated exposure control, adjustment of mA and/or kV according to patient size. COMPARISON: None. FINDINGS: Image quality: Excellent. Lung bases: Unremarkable. Heart: No significant findings. ABDOMEN: Liver: Liver is enlarged measuring 18.9 cm with steatosis. Gallbladder: The gallbladder is distended with a large stone in the dependent portion. There is no obstruction. Wall thickness is at the upper limits of normal measuring approximately 2.8 mm. Biliary ducts: Unremarkable. Pancreas: Unremarkable. Spleen: Unremarkable. Adrenal Glands: Unremarkable. Kidneys and Ureters: Unremarkable. Stomach and Bowel: Stomach, small bowel loops, and colon are unremarkable. Peritoneum: No abnormal intraperitoneal fluid. No free air. Ventral Wall: No hernia. Abdominal Nodes: No retroperitoneal or mesenteric adenopathy by size criteria. Vessels: Aorta and inferior vena cava are normal in size. PELVIS: Pelvic Organs: 4.5 cm low-attenuation focus is present within the left adnexa. Bladder: Unremarkable. Pelvic Nodes: No enlarged lymph nodes. Miscellaneous: No inguinal hernias are seen. Bones: Unremarkable. IMPRESSION: Prominent gallstone without obstruction and borderline wall thickening. Overall appearance is most consistent with cholelithiasis with equivocal findings of cholecystitis. Clinical correlation is recommended. Low-attenuation focus within the left adnexa suggestive of simple cyst. Pelvic ultrasound in 6 weeks is recommended for evaluation of stability. Hepatomegaly with steatosis. Dictated by: Nathaly Valdez M.D. on 08/17/2021 at 0:28 Approved by: Nathaly Valdez M.D. on 08/17/2021 at 0:31
[2021-08-17] MEDS: ONDANSETRON 4 MG ODT PREPACK 1 BOTTLE MISC (01:27)
[2021-08-17] MEDS: HYDROCODONE/ACET 5/325 PREPACK 1 BOTTLE MISC (01:27)
== END 2021-08-17 01:30 | disposition home or self-care (01) ==
PROVIDERS: Emergency Provider Emergency Medicine; Family Provider Physician Assistant; PCP Physician Assistant
DX: K80.80 Other cholelithiasis without obstruction (principal)
CPT/HCPCS: 74022; 74177; 76705; 80053; 82550; 82553; 83690; 84484; 85025; 93005; 99283; 99284; Q9967

== ENCOUNTER → 2021-10-11 09:22 | Outpatient (CLI) | payer MEDICARE, OTHER, SELFPAY ==
[2021-06-29 16:00] VITALS: BMI 29.1
[2021-10-11 10:08] LABS: COVID19 -Nasal RAPID Negative (Negative)
== END ==
PROVIDERS: PCP Physician Assistant; Visit Provider Surgery
DX: Z01.812 Encounter for preprocedural laboratory examination (principal); Z20.822 Contact with and (suspected) exposure to COVID-19
CPT/HCPCS: 87635

== ENCOUNTER 2021-10-11 12:01 | Day surgery (SDC) | payer MEDICARE, OTHER, SELFPAY ==
[2021-06-29 16:00] VITALS: BMI 29.1
[2021-10-06 15:03] VITALS: BMI 28.3
[2021-10-11] VITALS (8 sets, daily range): BP systolic 134–166; BP diastolic 56–96; PULSE 78–87; RESP 9–18; TEMP 36.1–36.6; O2SAT 92–97; BMI 29.8
--- NOTE | 2021-10-11 | PATH_ITS ---
[facility] Accession Number: [id number] . 01 Material submitted: . gallbladder - GALLBLADDER . 02 Diagnosis: Gallbladder, Cholecystectomy: Gallbladder with benign adenomyomatous hyperplasia (1.1 cm) and with cholelithiasis. MRV 10/14/2021 1701 Local . 02 Electronically signed: . Jenna Moreno MD, Pathologist NPI- [id number] . 01 Gross description: . Received in formalin and labeled with the patient's name and designated 1. Gallbladder is an 11.5 x 3.0 x 3.0 cm intact and distended gallbladder. The cystic duct margin is inked black. The serosa is green-neumann, wrinkled and hyperemic. The wall is 0.1 - 0.6 cm thick, focally thickened and cystic in the fundus over a 1.1 x 1.0 cm area. The mucosa is green, velvety and bile-stained, markedly attenuated in the upper portion underlying a 4.2 x 2.5 x 2.5 cm ovoid yellow-brown bosselated cholelith that is lodged in the cystic neck. No additional lesions are identified. Distribution Spec sections, including inked cystic duct margin en face, are submitted in A1. (OLIVIA:[id number]) /[facility] 10/13/2021 1717 Local . 02 Pathologist provided ICD-10: K80.70, K81.9, K80.50 . 02 CPT . 642959 Specimen Comment: A courtesy copy of this report has been sent to [phone] Performed at: 01 [facility] [address] [place] [address] [address] [facility], [place], [place] [id number] MD Darek Crowe MD Phone: [phone] Performed at: 02 [facility] [address] [place] [id number] MD Helene Morgan MD Phone: [phone]
--- NOTE | 2021-10-11 12:27 | SUR.OPER ---
Supine on padded OR bed, head on pillow, safety belt at thigh, left arm padded and tucked at side. Right arm secured on padded arm board <90 degrees abduction. Legs uncrossed. Padded footboard in place. Tape over blanket to secure lower legs.
--- NOTE | 2021-10-11 12:35 | P.HP_ITS ---
History of Present Illness History of Present Illness Date Patient Seen: 10/11/21 Time Patient Seen: 12:36 Chief complaint: Abdominal pain Narrative: Annamarie is a 66-year-old woman who developed severe abdominal pain in August. An ultrasound demonstrated gallstones. Her pain resolved and she has been relatively asymptomatic since then. She has been careful about what she eats which is helping. Patient History Medical History (Updated 10/11/21 @ 12:43 by Bam Corley MD) Anxiety about health Cataract (~2013) Gloria Dinero virus infection Essential tremor History of chicken pox (~1981) Measles (~1961) Mumps (~1959) Rosacea (~1994) Tinnitus (~2008) Surgical History H/O blepharoplasty (~2005) Status post arthroscopy Status post arthroscopy Family & Social History Family History Brother PTSD (post-traumatic stress disorder) Father Heart disease Mother Stroke Grandfather Brain aneurysm Grandmother Pneumonia Grandfather Heart attack Grandmother Stroke Social History: household members spouse other WALK, TRAVEL Tobacco & Substance use: Smoking Status Never smoker alcohol intake current alcohol intake frequency a few times a week Substance Use Type does not use Meds Home Medications and Allergies Home Medications Medication Instructions Recorded Confirmed Type thyroid (pork) 90 mg tablet 65 mg PO QDAY #0 08/07/17 10/11/21 History ([place] Thyroid) cholecalciferol (vitamin D3) 125 5,000 unit PO DAILY 04/03/19 10/11/21 History mcg (5,000 unit) capsule apixaban 5 mg tablet (Eliquis) 5 mg PO BID #60 tab 07/01/21 10/11/21 Rx carvedilol 3.125 mg tablet 3.125 mg PO DAILY 10/11/21 History Allergies Allergy/AdvReac Type Severity Reaction Status Date / Time latex [LATEX] Allergy Mild RASH Verified 10/11/21 12:01 Sulfa (Sulfonamide Allergy Verified 10/11/21 12:01 Antibiotics) Exam Const General: comfortable Resp Effort & Inspection: normal respiratory effort GI Palpation: soft Other: No Hernandez sign Assessment & Plan Assessment and plan (1) Gallstones: Status: Acute Plan Described the risks and benefits of laparoscopic cholecystectomy. She would like to proceed. COVID-19 COVID-19 status: Negative Result date/Date tested (Pos, Neg/Pending): 10/10/21 Time Spent With Patient Critical Care time: I spent a total of [] minutes of critical care time on this patient's care today; this time is exclusive of procedural time.
[2021-10-11] MEDS: LACTATED RINGERS 1,000 ML 42 ML IV (12:58)
[2021-10-11] MEDS: CEFAZOLIN 2 GM/20 ML SYRINGE IV (13:15)
--- NOTE | 2021-10-11 13:41 | SUR.OPER ---
Supine on padded OR bed, head on pillow, safety belt at thigh, arms secured on padded arm board <90 degrees abduction. Legs uncrossed. Padded footboard in place. Heels on gel pad.
[2021-10-11] MEDS: LIDOCAINE 1% W/EPI 20 ML INJ (13:45)
[2021-10-11] MEDS: BUPIVACAINE 0.5% (PF) VIAL 30 ML INJ (13:46)
--- NOTE | 2021-10-11 14:53 | PM.OP.1 ---
Operative Date/Time/Diagnoses Date of procedure: 10/11/21 Time of procedure: 14:54 Pre-op diagnosis: Gallstones Procedure & Clinicians Procedure: Laparoscopic cholecystectomy Same procedure as scheduled: Yes Surgeon: Bam Corley Anesthesia Type: General Operative Notes Procedure in detail: The patient was given preoperative antibiotic. The patient was brought to the operating room, placed on the table in the supine position. General endotracheal anesthesia was induced. The abdomen was prepped and draped. A time-out was performed. We made a 1 cm infraumbilical incision. We dissected down to the base of the umbilical stalk using cautery. We grasped the umbilical stalk with a Joshua clamp to elevate the abdominal wall. We scored the fascia in the midline with cautery 1 cm. We pierced the peritoneum with a Peon clamp. The Lukas port was placed and the abdomen was insufflated to 15 mmHg. A 5 mm 30 degree laparoscopic was inserted. There was no evidence of any injury from the entry. Next, we placed 5 mm ports in the subxiphoid position and right upper quadrant at the midclavicular line and anterior axillary line. Patient was then positioned in reverse Trendelenburg and the table was tilted to the left. The gallbladder was rather elongated. We then grasped the dome of the gallbladder and retracted it cephalad. There were some adhesions of mesenteric tissue to the right liver which were carefully dissected with cautery to allow full retraction of the gallbladder. We then dissected the cystic structures with a combination of hook cautery and blunt dissection. We obtained a critical view. We placed hemoclips on the cystic duct and artery and divided the cystic duct and artery sharply between the clips. The gallbladder was then dissected off the liver and placed in a specimen retrieval bag. We irrigated the right upper quadrant and all the aspirate returned clear. There were 2 small bleeders along the liver edge and the tongue of omentum that had been adherent that were both cauterized. We could see the tip of the appendix was lying in the right pericolic gutter and extending up along side the right lobe of the liver. We then removed the 5 mm ports under direct vision we removed the Lukas port. The umbilical incision had to be increased to about 3 cm due to the large stone. We then injected some local into the fascia and closed the fascia with 4 interrupted 0 Vicryl sutures. The skin incisions were closed with 4 Monocryl and Steri-Strips were applied. Band-Aids were applied over the Steri-Strips. EBL: 30 mL Specimen: Gallbladder Post-operative Condition: stable Disposition: PACU
[2021-10-11] MEDS: ACETAMINOPHEN 325 MG TABLET 975 MG PO (15:28)
== END 2021-10-11 16:05 | disposition home or self-care (01) ==
PROVIDERS: PCP Physician Assistant; Referring Provider Surgery; Visit Provider Surgery
PROC: 0FT44ZZ Resection of Gallbladder, Percutaneous Endoscopic Approach (ICD-10-PCS; CPT 47562; principal; 2021-10-11 12:45)
DX: K80.20 Calculus of gallbladder without cholecystitis without obstruction (principal); Z20.822 Contact with and (suspected) exposure to COVID-19
CPT/HCPCS: 47562; 87635; C9803; J0690; J1100; J1885; J2250; J2405; J2704; J3010

== ENCOUNTER → 2024-02-08 09:06 | Outpatient (CLI) | payer MEDICARE, OTHER, SELFPAY ==
[2021-06-29 16:00] VITALS: BMI 29.1
--- NOTE | 2024-02-08 09:25 | EKG_ITS ---
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
== END ==
PROVIDERS: PCP Physician Assistant; Referring Provider Family Medicine; Visit Provider Family Medicine
DX: I49.9 Cardiac arrhythmia, unspecified (principal)
CPT/HCPCS: 93005

== ENCOUNTER 2024-02-08 09:35 | Emergency (ER) | payer MEDICARE, OTHER, SELFPAY ==
[2021-06-29 16:00] VITALS: BMI 29.1
[2024-02-08] VITALS (30 sets, daily range): BP systolic 95–171; BP diastolic 56–113; PULSE 91–166; RESP 15–24; TEMP 36.8; O2SAT 96–99
--- NOTE | 2024-02-08 09:37 | ED_ITS ---
HPI - Arrhythmia/Palpitations General Chief Complaint: Arrhythmia/Palpitations Stated Complaint: arrhythmia, sent by op EKG Time Seen by Provider: 02/08/24 09:37 History of Present Illness HPI narrative: 68-year-old female presents for fast heart rate. Patient was at outpatient EKG, she was noted to be in AFib with RVR and was referred to the emergency department from outpatient EKG. Patient states that for the last 2 years she has stopped taking all Western medications and is treated by a homeopathic doctor. She states that for the last 3-4 days she has felt like her heart rate is going very fast. She contacted her airline transport pilot, who ordered the EKG for assessment. Related Data Home Medications Medication Instructions Recorded Confirmed thyroid (pork) 90 mg tablet 65 mg PO QDAY ##0 08/07/17 02/15/22 ([place] Thyroid) cholecalciferol (vitamin D3) 125 5,000 unit PO DAILY 04/03/19 02/15/22 mcg (5,000 unit) capsule carvedilol 3.125 mg tablet 3.125 mg PO DAILY 10/11/21 02/15/22 Previous Rx's Medication Instructions Recorded apixaban 5 mg tablet (Eliquis) 5 mg PO BID #60 tabs 07/01/21 tramadol 50 mg tablet 50 mg PO Q8H PRN pain #20 tabs 10/12/21 hydrocodone 5 mg-acetaminophen 325 1 tab PO Q4-6H PRN pain #20 tabs 10/15/21 mg tablet diltiazem HCl 240 mg capsule,24 240 mg PO DAILY #60 caps 02/08/24 hr,extended release Allergies Allergy/AdvReac Type Severity Reaction Status Date / Time latex [LATEX] Allergy Mild RASH Verified 02/08/24 09:51 Sulfa (Sulfonamide Allergy Verified 02/08/24 09:51 Antibiotics) Patient History Medical History Anxiety about health Essential tremor Gloria Dinero virus infection Rosacea (~1994) Mumps (~1959) Measles (~1961) History of chicken pox (~1981) Tinnitus (~2008) Cataract (~2013) Surgical History H/O blepharoplasty (~2005) Status post arthroscopy Status post arthroscopy Family History Brother PTSD (post-traumatic stress disorder) Father Heart disease Mother Stroke Grandfather Brain aneurysm Grandmother Pneumonia Grandfather Heart attack Grandmother Stroke Social History marital status: household members: spouse 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) education level: college occupational status: employed travel history: other leisure activities: other other: WALK, TRAVEL seatbelt use: always water heater temp set < 120 deg: Yes working smoke detector in home: Yes fire extinguisher in home: Yes carbon monox detector in home: Yes firearms in home: Yes firearms unloaded and locked: Yes do you feel safe at home: Yes Smoking Status: Never smoker alcohol intake: current substance use type: does not use during the past year weight has: decreased > 10 lbs well-balanced diet: daily or most days caffeine: Yes (1/2 CUP COFFEE) eating out: rarely or never Type(s) of exercise: walking frequency: 3-4 times per week duration: 30-45 minutes/day additional social history: Vision deficiencies- cataracts awaiting surgery in spring Smoking Status: Never smoker alcohol intake frequency: a few times a week Substance Use Type: does not use Exam Initial Vital Signs Initial Vital Signs: Vital Signs Temperature 98.2 F 02/08/24 09:37 Pulse Rate 146 H 02/08/24 09:37 Respiratory Rate 15 02/08/24 09:37 Blood Pressure 171/95 H 02/08/24 09:37 Pulse Oximetry 98 02/08/24 09:37 Oxygen Delivery Method Room Air 02/08/24 09:37 Const: Awake, alert, anxious appearing, nontoxic Cardiac: Tachycardia, irregularly irregular rhythm RESP: unlabored, clear bilaterally, no wheezing MSK: Atraumatic, full range of motion, pulses equal Skin: Warm, Dry, intact, no rashes Neuro: AO x3, CN II-XII grossly intact, moves all extremities, resting tremor (chronic per patient) Course Orders Ordered: Discontinued Medications Diltiazem HCl (Diltiazem 25 Mg/5 Ml Sdv) 15 mg IV NOW ONE Stop: 02/08/24 09:58 Last Admin: 02/08/24 10:00 Dose: 15 mg Documented By: LISA Diltiazem HCl (Diltiazem 25 Mg/5 Ml Sdv) 20 mg IV NOW ONE Stop: 02/08/24 10:37 Last Admin: 02/08/24 10:44 Dose: 20 mg Documented By: LISA Metoprolol Tartrate (Metoprolol Tartrate 5 Mg/5 Ml Inj) 5 mg IV Q5M [facility] Stop: 02/08/24 10:11 Metoprolol Tartrate (Metoprolol Tartrate 5 Mg/5 Ml Inj) 5 mg IV Q5M [facility] Stop: 02/08/24 12:26 Last Admin: 02/08/24 13:31 Dose: Not Given Documented By: Admin: 02/08/24 12:51 Dose: 5 mg Documented By: Admin: 02/08/24 12:18 Dose: 5 mg Documented By: LISA Vital Signs Vital signs: Vital Signs - 8 hr 02/08/24 09:37 02/08/24 09:43 02/08/24 09:46 Temperature 98.2 F Pulse Rate 146 H 153 H Respiratory Rate 15 Blood Pressure 171/95 H 171/95 H Pulse Oximetry 98 98 Oxygen Delivery Method Room Air 02/08/24 09:46 02/08/24 10:00 02/08/24 10:00 Temperature Pulse Rate 107 H 164 H 164 H Respiratory Rate 22 Blood Pressure 171/95 H Pulse Oximetry 97 96 Oxygen Delivery Method 02/08/24 10:02 02/08/24 10:02 02/08/24 10:05 Temperature Pulse Rate 166 H Respiratory Rate 19 Blood Pressure 127/91 H 95/69 Pulse Oximetry 97 Oxygen Delivery Method 02/08/24 10:05 02/08/24 10:13 02/08/24 10:13 Temperature Pulse Rate 124 H 120 H Respiratory Rate 23 22 Blood Pressure 157/98 H Pulse Oximetry 97 97 Oxygen Delivery Method 02/08/24 10:15 02/08/24 10:15 02/08/24 10:20 Temperature Pulse Rate 114 H 116 H Respiratory Rate 23 23 Blood Pressure 140/86 Pulse Oximetry 97 96 Oxygen Delivery Method 02/08/24 10:20 02/08/24 10:25 02/08/24 10:25 Temperature Pulse Rate 126 H Respiratory Rate 23 Blood Pressure 156/69 H 147/83 H Pulse Oximetry 97 Oxygen Delivery Method 02/08/24 10:33 02/08/24 10:35 02/08/24 10:35 Temperature Pulse Rate 144 H 133 H Respiratory Rate 23 19 Blood Pressure 169/113 H Pulse Oximetry 97 99 Oxygen Delivery Method 02/08/24 10:40 02/08/24 10:40 02/08/24 10:44 Temperature Pulse Rate 136 H 122 H Respiratory Rate 18 Blood Pressure 144/75 H 144/75 H Pulse Oximetry 99 Oxygen Delivery Method 02/08/24 10:46 02/08/24 10:46 02/08/24 10:48 Temperature Pulse Rate 124 H Respiratory Rate 20 Blood Pressure 144/65 H 105/58 L Pulse Oximetry 98 Oxygen Delivery Method 02/08/24 10:48 02/08/24 10:50 02/08/24 10:50 Temperature Pulse Rate 101 H 107 H Respiratory Rate 22 21 Blood Pressure 120/75 Pulse Oximetry 98 98 Oxygen Delivery Method 02/08/24 10:52 02/08/24 10:52 02/08/24 11:00 Temperature Pulse Rate 94 H Respiratory Rate 24 Blood Pressure 118/56 L 125/83 Pulse Oximetry 98 Oxygen Delivery Method 02/08/24 11:00 02/08/24 11:30 Temperature Pulse Rate 91 H 105 H Respiratory Rate 21 Blood Pressure Pulse Oximetry 98 96 Oxygen Delivery Method MDM - Arrhythmia/Palpitations Lab Data 02/08/24 09:47 02/08/24 09:47 Labs: Lab Results 02/08/24 Range/Units 09:47 WBC 12.3 H (4.5-11.0) X10^3/uL RBC 4.83 (4.0-5.2) X10^6/uL Hgb 14.0 (12.0-16.0) g/dL Hct 42.5 (36-46) % MCV 88.0 (80-100) fL MCH 29.1 (26-34) PG MCHC 33.1 (30-36) % RDW 14.9 H (11.6-14.8) % Plt Count 337 (150-400) X10^3/uL Neut % (Auto) 58.8 (50-75) % Lymph % (Auto) 32.0 (25-40) % [place] % (Auto) 7.1 (3-14) % Eos % (Auto) 1.6 L (2-4) % Baso % (Auto) 0.5 (0-2) % Neut # (Auto) 7300 H (2561-3527) /uL Lymph # (Auto) 4000 (1256-7238) /uL [place] # (Auto) 900 (0-900) /uL Eos # (Auto) 200 (0-450) /uL Baso # (Auto) 100 (0-100) /uL PT 11.7 (9.4-12.5) SECONDS INR 1.0 (0.9-1.3) Sodium 140 (137-145) mmol/L Potassium 3.8 (3.4-5.1) mmol/L Chloride 108 H (98-107) mmol/L Carbon Dioxide 26 (22-32) mmol/L BUN 19 H (7-17) mg/dL Creatinine 0.88 (0.52-1.04) mg/dL Estimated GFR > 60 (>60) mL/min BUN/Creatinine Ratio 21.6 (6-22) Glucose 96 (80-110) mg/dL Calcium 9.3 (8.4-10.2) mg/dL Magnesium 2.4 H (1.6-2.3) mg/dL Total Bilirubin 0.7 (0.2-1.3) mg/dL AST 28 (14-36) IU/L ALT 32 (<35) IU/L Alkaline Phosphatase 76 (38-126) U/L Troponin I < 0.012 (0.01-0.034) ng/mL NT-Pro-B Natriuret Pep 2490 H (<125) pg/mL Total Protein 7.5 (6.3-8.2) g/dL Albumin 4.2 (3.5-5.0) g/dL Globulin 3.3 (1.7-4.1) g/dL Albumin/Globulin Ratio 1.3 (1.0-2.8) TSH 3.41 (0.47-4.68) uIU/mL Imaging Data Chest x-ray: Radiologist's Impresson: PROCEDURE: XR CHEST 1V INDICATIONS: A FIB RVR TECHNIQUE: One view of the chest was acquired. COMPARISON: [facility], , CHEST 1 VIEW, 11/10/2016, 18:32. FINDINGS: Surgical changes and devices: None. Lungs and pleura: Small left pleural effusion is likely present with slight blunting of left costophrenic angle. Mild pulmonary vascular congestion is noted. No definite focal infiltrate. No pneumothorax. Mediastinum: Mediastinal contours appear normal. Heart size is enlarged. Bones and chest wall: No suspicious bony lesions. Overlying soft tissues appear unremarkable. IMPRESSION: Cardiomegaly and mild congestion with small left pleural effusion. No definite focal infiltrate. No pneumothorax. Dictated by: Duke Young M.D. on 02/08/2024 at 10:29 Approved by: Duke Young M.D. on 02/08/2024 at 10:30 ECG Data Interpretation: Tachycardia, 166 beats per minute. Irregularly irregular, atrial fibrillation with RVR. MDM Narrative Medical decision making narrative: Patient presenting for AFib with RVR found on outpatient EKG. Patient has not been on any prescribed allopathic medications for at least 2 years. I discussed atrial fibrillation and its risks including heart failure and debilitating strokes. Patient states that she understands the risks and is adamant that she will not be on any blood thinning medications. She states that she uses willow bark to treat her conditions and has no intention of restarting Eliquis or any other blood thinner. Patient not a candidate for electrical cardioversion due to no anticoagulation and symptoms lasting longer than 48 hours. We will attempt to medically controlled with metoprolol. Nursing staff informed me that patient refused metoprolol stating that she had had in the past and it was ?poison?. Cardizem IV ordered for heart rate control. Brief improvement in heart rate with Cardizem, however she did have elevation again. Laboratory work thus far unremarkable. Potassium within normal limits, magnesium 2.4. Chest x-ray negative for acute abnormalities. Patient consented to IV metoprolol, which did improve her heart rate better. Patient stated that she did not want to be on metoprolol outpatient because it made her feel abnormal. Diltiazem sent to pharmacy of choice. Patient again declined blood thinners. Discharge Plan Departure Patient Disposition: Home Clinical Impression: Atrial fibrillation with RVR, Refusal of anticoagulant medication by patient Instructions: DI for Atrial Fibrillation Activity Restrictions/Additional Instructions: You were found to be in atrial fibrillation with rapid ventricular response today. Your chest X ray showed heart enlargement with some fluid buildup in your lungs. It was extremely important that you follow up with Cardiology and take the prescribed diltiazem as prescribed. Keep a monitor of your heart rate and blood pressures at home. If you notice that your heart rate is continually above 110-120 beats per minute please return to the emergency department for medication adjustments. As we discussed it was recommended to be on a blood thinner with atrial fibrillation, however it was your right to refuse this medication, however be warned that it increase your risk for stroke in the future. Prescriptions: New diltiazem HCl 240 mg capsule,extended release 24 hr 240 mg PO DAILY Qty: 60 0RF No Action thyroid (pork) [[place] Thyroid] 90 MG tablet 65 mg PO QDAY Qty: 0 tramadol 50 mg tablet 50 mg PO Q8H PRN (Reason: pain) Qty: 20 0RF cholecalciferol (vitamin D3) 5,000 unit capsule 5,000 unit PO DAILY Eliquis 5 mg Tablet 5 mg PO BID Qty: 60 0RF carvedilol 3.125 mg tablet 3.125 mg PO DAILY Patient Comments: take 1 tablet by mouth twice a day with meals hydrocodone-acetaminophen 5-325 mg tablet 1 tab PO Q4-6H PRN (Reason: pain) Qty: 20 0RF Referrals: Nilam Larson PA-C [Primary Care Provider] - Stand Alone Forms: Patient Portal/API
[2024-02-08 09:57] LABS: Add Manual Diff / Slide Review NO; Basophils Absolute Auto 100 /uL (0-100); Basophils Percent Auto 0.5 % (0-2); Eosinophils Absolute Auto 200 /uL (0-450); Eosinophils Percent Auto 1.6 % (2-4); Hematocrit 42.5 % (36-46); Lymphocytes Absolute Auto 4000 /uL (1100-4500); Mean Corpuscular HGB Conc 33.1 % (30-36); Mean Corpuscular Hemoglobin 29.1 PG (26-34); Monocytes Absolute Auto 900 /uL (0-900); Monocytes Percent Auto 7.1 % (3-14); Neutrophils Absolute Auto 7300 /uL (1500-7000); Neutrophils Percent Auto 58.8 % (50-75); Platelet Count 337 X10^3/uL (150-400); Red Blood Cell Count 4.83 X10^6/uL (4.0-5.2); Red Cell Distribution Width 14.9 % (11.6-14.8); White Blood Cell Count 12.3 X10^3/uL (4.5-11.0)
[2024-02-08] MEDS: dilTIAZem 25 MG/5 ML SDV 15 MG IV (10:00)
[2024-02-08 10:08] LABS: Prothrombin Time 11.7 SECONDS (9.4-12.5)
[2024-02-08 10:09] LABS: Alanine Aminotransferase 32 IU/L (<35); Albumin 4.2 g/dL (3.5-5.0); Albumin Globulin Ratio 1.3 (1.0-2.8); Alkaline Phosphatase 76 U/L (38-126); Aspartate Aminotransferase 28 IU/L (14-36); BUN Creatinine Ratio 21.6 (6-22); Bilirubin Total 0.7 mg/dL (0.2-1.3); Blood Urea Nitrogen 19 mg/dL (7-17); Calcium 9.3 mg/dL (8.4-10.2); Carbon Dioxide 26 mmol/L (22-32); Chloride 108 mmol/L (98-107); Estimated Glomerular Filt Rate > 60 mL/min (>60); Globulin 3.3 g/dL (1.7-4.1); Glucose 96 mg/dL (80-110); HEMOLYSIS < 15 (0-50); Magnesium 2.4 mg/dL (1.6-2.3); Potassium 3.8 mmol/L (3.4-5.1); Sodium 140 mmol/L (137-145); Total Protein 7.5 g/dL (6.3-8.2)
[2024-02-08 10:39] LABS: Thyroid Stimulating Hormone 3.41 uIU/mL (0.47-4.68)
[2024-02-08] MEDS: dilTIAZem 25 MG/5 ML SDV 20 MG IV (10:44)
--- NOTE | 2024-02-08 11:03 | EKG_ITS ---
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
[2024-02-08 11:50] LABS: NT-proBNP (BNP-Adult 18+) 2490 pg/mL (<125); Troponin I < 0.012 ng/mL (0.01-0.034)
[2024-02-08] MEDS: METOPROLOL TARTRATE 5 MG/5 ML INJ IV ×2 (12:18→12:51)
--- NOTE | 2024-02-08 13:37 | EKG_ITS ---
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
--- NOTE | 2024-02-09 09:57 | PC.NURSE ---
Pt called stating her blood pressure this am was 91 systolic and she did not take her cardiazem as prescribed by Dr. Wan. Asked if we could 'split doses' and call in a new prescription. Dr. Wan is not on today. Encouraged to return to ED if she has concerns but to at least call her PCP office to check in. Pt declined to return and states she will call her PCP office. Pt states she has a cardiology appointment set.
== END 2024-02-08 13:50 | disposition home or self-care (01) ==
PROVIDERS: Emergency Provider Emergency Medicine; PCP Physician Assistant
DX: I48.20 Chronic atrial fibrillation, unspecified (principal); I49.9 Cardiac arrhythmia, unspecified
CPT/HCPCS: 36415; 71045; 80053; 83735; 83880; 84443; 84484; 85025; 85610; 93005; 96374; 96376; 99284

== ENCOUNTER 2025-05-21 08:23 | Observation (INO) | payer MEDICARE, OTHER, SELFPAY ==
[2021-06-29 16:00] VITALS: BMI 29.1
[2025-05-21] VITALS (40 sets, daily range): BP systolic 89–152; BP diastolic 55–99; PULSE 69–153; RESP 12–24; TEMP 36.2–36.9; O2SAT 95–99; BMI 29.7; BMI 30.4
--- NOTE | 2025-05-21 08:31 | EKG_ITS ---
[facility]
--- NOTE | 2025-05-21 08:34 | DI.RAD.S_ITS ---
PROCEDURE: XR CHEST 1V
--- NOTE | 2025-05-21 08:35 | ED_ITS ---
HPI - SOB/Dyspnea
--- NOTE | 2025-05-21 08:35 | ED.SOB ---
HPI - SOB/Dyspnea General Chief Complaint: Arrhythmia/Palpitations Stated Complaint: Per patient. In AFIB This morning Time Seen by Provider: 05/21/25 08:24 History of Present Illness HPI Narrative: 70-year-old female history of hypothyroidism, atrial fibrillation on carvedilol and intermittent use of Eliquis, presents with chest tightness, lightheadedness, fatigue, weakness, started yesterday at 1:30 p.m. while she was getting her facial cosmetic treatment completed. She has since taken a baby aspirin and 1 dose Eliquis. Patient reports that she has been cardioverted in the past as medications did not work for her atrial fibrillation. She denies back pain, any radiating symptoms from chest pain, diaphoresis, nausea, vomiting, dyspnea on exertion, leg pain, leg swelling. Other than what is stated 14 point review of system is negative. Related Data Home Medications ?Medication ?Instructions ?Recorded ?Confirmed thyroid (pork) 90 mg tablet 65 mg PO QDAY ##0 08/07/17 02/15/22 ([place] Thyroid) cholecalciferol (vitamin D3) 125 5,000 unit PO DAILY 04/03/19 02/15/22 mcg (5,000 unit) capsule carvedilol 3.125 mg tablet 3.125 mg PO DAILY 10/11/21 02/15/22 Previous Rx's ?Medication ?Instructions ?Recorded apixaban 5 mg tablet (Eliquis) 5 mg PO BID #60 tabs 07/01/21 tramadol 50 mg tablet 50 mg PO Q8H PRN pain #20 tabs 10/12/21 hydrocodone 5 mg-acetaminophen 325 1 tab PO Q4-6H PRN pain #20 tabs 10/15/21 mg tablet diltiazem HCl 240 mg capsule,24 240 mg PO DAILY #60 caps 02/08/24 hr,extended release Allergies Allergy/AdvReac Type Severity Reaction Status Date / Time latex (LATEX) Allergy Mild RASH Verified 02/08/24 09:51 Sulfa (Sulfonamide Allergy Verified 02/08/24 09:51 Antibiotics) Review of Systems Review of Systems ROS Unobtainable: All systems reviewed & are unremarkable except as noted in HPI and below Patient History Medical History Anxiety about health Essential tremor Gloria Dinero virus infection Rosacea (~1994) Mumps (~1959) Measles (~1961) History of chicken pox (~1981) Tinnitus (~2008) Cataract (~2013) Surgical History H/O blepharoplasty (~2005) Status post arthroscopy Status post arthroscopy Family History Brother PTSD (post-traumatic stress disorder) Father Heart disease Mother Stroke Grandfather Brain aneurysm Grandmother Pneumonia Grandfather Heart attack Grandmother Stroke Social History marital status: household members: spouse 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) education level: college occupational status: employed travel history: other leisure activities: other other: WALK, TRAVEL seatbelt use: always water heater temp set < 120 deg: Yes working smoke detector in home: Yes fire extinguisher in home: Yes carbon monox detector in home: Yes firearms in home: Yes firearms unloaded and locked: Yes do you feel safe at home: Yes alcohol intake: current substance use type: does not use during the past year weight has: decreased > 10 lbs well-balanced diet: daily or most days caffeine: Yes (1/2 CUP COFFEE) eating out: rarely or never Type(s) of exercise: walking frequency: 3-4 times per week duration: 30-45 minutes/day additional social history: Vision deficiencies- cataracts awaiting surgery in spring alcohol intake frequency: a few times a week Exam Narrative Exam Narrative: GENERAL: [70] year old patient appears stated age. Well-developed patient, in mild distress. HEAD: Atraumatic. Normocephalic. EYES: Pupils equal round and reactive. Extraocular motions intact. No scleral icterus. No injection or drainage. ENT: Nose without bleeding, purulent drainage. Throat without erythema, tonsillar hypertrophy or exudate. Airway patent. NECK: Trachea midline. Non tender CARDIOVASCULAR: Tachycardic irregularly irregular rate and rhythm without murmurs, gallops, or rubs. RESPIRATORY: Clear to auscultation. Breath sounds equal bilaterally. No wheezes, rales, or rhonchi. GASTROINTESTINAL: Abdomen soft, non-tender, nondistended. EXTREMITIES: No edema or joint tenderness. BACK: Nontender without deformity or crepitance. No flank tenderness. NEURO: AOx3. SKIN: No rash or erythema of visible areas Initial Vital Signs Initial Vital Signs: Vital Signs Blood Pressure 131/99 H 05/21/25 08:28 Scores HEART Score Heart Score history: Moderately Suspicious Heart Score EKG: Non-Specific repolarization disturbance Heart Score Age: > or = 65 years old Heart Score risk factors: 1-2 risk factors Heart Score troponin: < or = to normal limit Heart Score Total: 5 Course Orders Ordered: ED Orders 05/21/25 08:34 XR chest 1V Stat EKG-12 Lead Stat 05/21/25 09:09 Complete Blood Count AUTO DIFF Stat Comprehensive Metabolic Panel Stat Lipase Stat Magnesium Stat NT-proBNP (BNP-Adult 18+) Stat TSH [Thyroid Stimulating Hormone] Stat Troponin I Stat 05/21/25 10:32 EKG-12 Lead Stat 05/21/25 10:46 Troponin I Stat Discontinued Medications Aspirin (Aspirin 81 Mg Chew Tab) 324 mg PO NOW ONE Stop: 05/21/25 08:35 Last Admin: 05/21/25 09:10 Dose: 324 mg Documented By: JOCELINE Diltiazem HCl (Diltiazem 25 Mg/5 Ml Sdv) 25 mg IV NOW ONE Stop: 05/21/25 08:35 Last Admin: 05/21/25 09:07 Dose: 25 mg Documented By: JOCELINE Vital Signs Vital signs: Vital Signs - 8 hr 05/21/25 08:28 05/21/25 08:29 05/21/25 08:29 Temperature 98.4 F Pulse Rate 130 H 114 H Respiratory Rate 20 Blood Pressure 131/99 H 131/99 H Pulse Oximetry 99 98 Oxygen Delivery Method Room Air 05/21/25 08:30 05/21/25 09:05 05/21/25 09:07 Temperature Pulse Rate 148 H 146 H 149 H Respiratory Rate 19 19 Blood Pressure 131/99 H Pulse Oximetry 98 95 Oxygen Delivery Method 05/21/25 09:09 05/21/25 09:09 05/21/25 09:22 Temperature Pulse Rate 142 H Respiratory Rate 21 Blood Pressure 132/89 126/99 H Pulse Oximetry 96 Oxygen Delivery Method 05/21/25 09:22 05/21/25 09:30 05/21/25 09:30 Temperature Pulse Rate 115 H 69 Respiratory Rate 19 19 Blood Pressure 109/61 Pulse Oximetry 96 95 Oxygen Delivery Method 05/21/25 09:45 05/21/25 09:45 05/21/25 10:00 Temperature Pulse Rate 115 H 93 H Respiratory Rate 17 13 Blood Pressure 112/57 L Pulse Oximetry 97 96 Oxygen Delivery Method MDM - SOB/Dyspnea Lab Data 05/21/25 09:09 05/21/25 09:09 Labs: Lab Results 05/21/25 05/21/25 Range/Units 09:09 10:46 WBC 10.5 (4.5-11.0) X10^3/uL RBC 5.05 (4.0-5.2) X10^6/uL Hgb 15.2 (12.0-16.0) g/dL Hct 45.0 (36-46) % MCV 89.0 (80-100) fL MCH 30.0 (26-34) PG MCHC 33.7 (30-36) % RDW 14.4 (11.6-14.8) % Plt Count 328 (150-400) X10^3/uL Neut % (Auto) 69.2 (50-75) % Lymph % (Auto) 21.3 L (25-40) % [place] % (Auto) 7.9 (3-14) % Eos % (Auto) 1.1 L (2-4) % Baso % (Auto) 0.5 (0-2) % Neut # (Auto) 7300 H (7137-4061) /uL Lymph # (Auto) 2200 (6001-3741) /uL [place] # (Auto) 800 (0-900) /uL Eos # (Auto) 100 (0-450) /uL Baso # (Auto) 0 (0-100) /uL Sodium 139 (137-145) mmol/L Potassium 3.9 (3.4-5.1) mmol/L Chloride 105 (98-107) mmol/L Carbon Dioxide 24 (22-32) mmol/L BUN 18 H (7-17) mg/dL Creatinine 0.74 (0.52-1.04) mg/dL Estimated GFR > 60 (>60) mL/min BUN/Creatinine Ratio 24.3 H (6-22) Glucose 137 H (70-99) mg/dL Calcium 9.4 (8.4-10.2) mg/dL Magnesium 2.0 (1.6-2.3) mg/dL Total Bilirubin 0.5 (0.2-1.3) mg/dL AST 29 (14-36) IU/L ALT 22 (<35) IU/L Alkaline Phosphatase 75 (38-126) U/L Troponin I 0.037 H 0.029 (0.01-0.034) ng/mL NT-Pro-B Natriuret Pep 4130 H (<125) pg/mL Total Protein 7.8 (6.3-8.2) g/dL Albumin 4.6 (3.5-5.0) g/dL Globulin 3.2 (1.7-4.1) g/dL Albumin/Globulin Ratio 1.4 (1.0-2.8) Lipase 75 (23-300) U/L TSH 3.01 (0.47-4.68) uIU/mL Urine Dip Bedside Urine Glucose Negative Bedside Urine Bilirubin - Negative Bedside Urine Ketone - Negative Urine Specific [place] 1.010 Bedside Urine Occult Blood +/- Bedside Urine pH 6.0 Bedside Urine Protein - Negative Bedside Urine Urobilinogen - Negative Bedside Urine Nitrite - Negative Bedside Urine Leukocytes - Negative Esterase Imaging Data Chest x-ray: Radiologist's Impression: [address] [address] XRay Report Signed Patient: Annamarie Gould MR#: [id number] : 1955 Acct:[id number] Age/Sex: 70 / F Date of Service: 05/21/25 Loc: ED Accession Number: [id number] Procedure: XR chest 1V Ordering Provider: Kavon Bustillos D.O. PROCEDURE: XR CHEST 1V INDICATIONS: sob TECHNIQUE: One view of the chest was acquired. COMPARISON: , , XR CHEST 1V, 02/08/2024, 9:58. FINDINGS: Surgical changes and devices: None. Lungs and pleura: Lungs are clear. No pleural effusions or pneumothorax. Mediastinum: Mediastinal contours appear normal. Heart size is enlarged, unchanged. Bones and chest wall: No suspicious bony lesions. Overlying soft tissues appear unremarkable. IMPRESSION: Unchanged cardiomegaly. No evidence acute pulmonary process. Dictated by: Maximino Ordoñez M.D. on 05/21/2025 at 9:16 Approved by: Maximino Ordoñez M.D. on 05/21/2025 at 9:16 ECG Data Interpretation: EKG#1 Afib RVR HR 136 FL undetermined QRS [address]-t wave changes Unchanged from 02/08/24 EKG #2 Aflutter HR 92 FL undetermined QRS [address]-t wave change change from 05/21/25 MDM Narrative Medical decision making narrative: All lab work, vital signs, nurse triage note, medication list, previous ER visits, and all imaging studies reviewed. Chest x-ray showed unchanged cardiomegaly no evidence of acute pulmonary process. WBC 10.5 hemoglobin 15.2 platelets 328 sodium 139 potassium 3.9 chloride 105 CO2 24 BUN 18 creatinine 0.74 glucose 137 magnesium 2.0. Troponin 0.037. BNP 4130 lipase 75. Patient given aspirin 325 mg and diltiazem 25 mg IV x1. Second troponin went down 0.029. Patient is started on diltiazem drip 5 mg an hour after she was rate controlled she went back up into the 130s. Case discussed with Dr. Ellison who has graciously accepted the patient for inpatient admission. Discharge Plan Departure Patient Disposition: Admitted as Observation Clinical Impression: Atrial fibrillation with rapid ventricular response
[2025-05-21] MEDS: ASPIRIN 81 MG CHEW TAB 324 MG PO (09:10)
[2025-05-21 09:20] LABS: Add Manual Diff / Slide Review NO; Hematocrit 45.0 % (36-46); Hemoglobin 15.2 g/dL (12.0-16.0); Lymphocytes Absolute Auto 2200 /uL (1100-4500); Mean Corpuscular HGB Conc 33.7 % (30-36); Mean Corpuscular Hemoglobin 30.0 PG (26-34); Mean Corpuscular Volume 89.0 fL (80-100); Platelet Count 328 X10^3/uL (150-400)
[2025-05-21 09:30] LABS: Alanine Aminotransferase 22 IU/L (<35); Albumin 4.6 g/dL (3.5-5.0); Albumin Globulin Ratio 1.4 (1.0-2.8); Alkaline Phosphatase 75 U/L (38-126); Blood Urea Nitrogen 18 mg/dL (7-17); Calcium 9.4 mg/dL (8.4-10.2); Carbon Dioxide 24 mmol/L (22-32); Chloride 105 mmol/L (98-107); Estimated Glomerular Filt Rate > 60 mL/min (>60); Globulin 3.2 g/dL (1.7-4.1); Glucose 137 mg/dL (70-99); HEMOLYSIS < 15 (0-50); Lipase 75 U/L (23-300); Magnesium 2.0 mg/dL (1.6-2.3); Potassium 3.9 mmol/L (3.4-5.1); Sodium 139 mmol/L (137-145); Total Protein 7.8 g/dL (6.3-8.2)
[2025-05-21 09:41] LABS: NT-proBNP (BNP-Adult 18+) 4130 pg/mL (<125); Troponin I 0.037 ng/mL (0.01-0.034)
[2025-05-21 10:27] LABS: Thyroid Stimulating Hormone 3.01 uIU/mL (0.47-4.68)
--- NOTE | 2025-05-21 10:42 | EKG_ITS ---
[facility]
[2025-05-21 11:22] LABS: Troponin I 0.029 ng/mL (0.01-0.034)
[2025-05-21 14:25] LABS: Free T4, Direct Thyroxine 1.36 ng/dL (0.78-2.19)
--- NOTE | 2025-05-21 14:57 | PC.ADMIT ---
Addendum entered by Mike Daniel RN 05/21/25 17:34: DR QUIÑONES AT [facility]. PER , PT STATES SHE DOES NOT WANT TO BE CARDIOVERTED HERE. PLAN [facility]IB[facility]. REMAINS ON CARDIZEM GTT AT THIS TIME. AGITATED/ REFUSING BP AT THIS TIME WHILE EATING. STATES SHE IS UNHAPPY BECAUSE OF THE LUBE FROM THE ECHO, THE DR, AND HER FOOD ALL COMING AT THE SAME TIME. EDUCATED ON NEED TO OBSERVE TELEMETRY WHILE SHE IS ON CARDIZME,. AGREES TO ALLOW LEADS TO BE RECONNECTED. Original Note: [email or web address] [facility] Admission Note: PT ADMITTED AT 1321. A/OX4, MILDLY ANXIOUS. ON DILTIAZEM GTT AT 5MG. HEART RATE 140S WITH NO C/O CHEST PAIN OR SOB. NO S/S OF RESPI DISTRESS. INCREASED DILT GTT TO 10MG. SEE EMAR. NOTED TREMORS TO R ARM/ LEG. 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 DR RUBI MADE AWARE OF PT ARRIVAL. PT UP TO TOILET WITH STANDYBY ASSISTANCE. DR RUBI BY TO DISCUSS PLAN OF CARE WITH PATIENT. SEE ORDERS. ALL QUESTIONS ANSWERED/ CONCERNS ADDRESSED. CARE ONGOING. The patient,Annamarie Gould,70 y/o, was given written information regarding hospital policies, unit procedures and contact persons. Patient's smoking status: Never smoker. Vital Signs - 8 hr 05/21/25 08:28 05/21/25 08:29 05/21/25 08:29 Temperature 98.4 F Pulse Rate 130 H 114 H Respiratory Rate 20 Blood Pressure 131/99 H 131/99 H Pulse Oximetry 99 98 Oxygen Delivery Method Room Air 05/21/25 08:30 05/21/25 09:05 05/21/25 09:07 Temperature Pulse Rate 148 H 146 H 149 H Respiratory Rate 19 19 Blood Pressure 131/99 H Pulse Oximetry 98 95 Oxygen Delivery Method 05/21/25 09:09 05/21/25 09:09 05/21/25 09:22 Temperature Pulse Rate 142 H Respiratory Rate 21 Blood Pressure 132/89 126/99 H Pulse Oximetry 96 Oxygen Delivery Method 05/21/25 09:22 05/21/25 09:30 05/21/25 09:30 Temperature Pulse Rate 115 H 69 Respiratory Rate 19 19 Blood Pressure 109/61 Pulse Oximetry 96 95 Oxygen Delivery Method 05/21/25 09:45 05/21/25 09:45 05/21/25 10:00 Temperature Pulse Rate 115 H 93 H Respiratory Rate 17 13 Blood Pressure 112/57 L Pulse Oximetry 97 96 Oxygen Delivery Method 05/21/25 11:00 05/21/25 11:10 05/21/25 11:10 Temperature Pulse Rate 108 H 106 H Respiratory Rate 19 18 Blood Pressure 128/78 Pulse Oximetry 98 97 Oxygen Delivery Method Room Air 05/21/25 11:15 05/21/25 11:15 05/21/25 11:30 Temperature Pulse Rate 101 H 112 H Respiratory Rate 19 22 Blood Pressure 128/67 Pulse Oximetry 96 95 Oxygen Delivery Method 05/21/25 11:31 05/21/25 11:31 05/21/25 11:45 Temperature Pulse Rate 115 H 119 H Respiratory Rate 21 20 Blood Pressure 125/65 Pulse Oximetry 95 95 Oxygen Delivery Method 05/21/25 11:45 05/21/25 12:01 05/21/25 12:12 Temperature Pulse Rate 153 H 142 H Respiratory Rate 12 21 Blood Pressure 152/82 H Pulse Oximetry Oxygen Delivery Method 05/21/25 12:12 05/21/25 12:15 05/21/25 12:15 Temperature Pulse Rate 140 H Respiratory Rate 21 Blood Pressure 128/76 108/57 L Pulse Oximetry Oxygen Delivery Method 05/21/25 12:30 05/21/25 12:30 05/21/25 12:46 Temperature Pulse Rate 142 H 139 H Respiratory Rate 23 18 Blood Pressure 124/64 Pulse Oximetry Oxygen Delivery Method 05/21/25 12:46 05/21/25 12:50 05/21/25 12:55 Temperature Pulse Rate 144 H 140 H Respiratory Rate 16 Blood Pressure 134/61 134/61 Pulse Oximetry 96 Oxygen Delivery Method 05/21/25 12:55 05/21/25 13:05 05/21/25 13:06 Temperature Pulse Rate 152 H 153 H Respiratory Rate 24 20 Blood Pressure 133/61 Pulse Oximetry 96 97 Oxygen Delivery Method 05/21/25 13:06 05/21/25 13:30 05/21/25 13:30 Temperature Pulse Rate 143 H Respiratory Rate 19 Blood Pressure 131/62 131/81 Pulse Oximetry 98 Oxygen Delivery Method Room Air 05/21/25 13:30 05/21/25 13:45 Temperature 97.1 F L Pulse Rate Respiratory Rate Blood Pressure Pulse Oximetry Oxygen Delivery Method Room Air
--- NOTE | 2025-05-21 17:20 | P.CONS_ITS ---
History of Present Illness
--- NOTE | 2025-05-21 17:20 | PM.CN ---
History of Present Illness Consult details Date Patient Seen: 05/21/25 Time Patient Seen: 17:21 Chief complaint: Per patient. In AFIB This morning Reason for consult: Management of Atrial fibrillation Narrative: 70-year-old female with past medical history of paroxysmal atrial fibrillation status post multiple cardioversions hypothyroidism admitted to the hospital after she had a sudden onset of atrial fibrillation while she was undergoing facial therapy in [place]. She had a facet and experience symptoms of dizziness heart racing fast. She came home her symptoms did not renata and at that point she decided to come to the [facility] emergency room for evaluation. EKG showed atrial fibrillation with rapid ventricular rate of 136 beats per minute. She was offered admission to the hospital. Patient has not been taking anticoagulants. She sees Dr. Gomez at [facility]. For some reason patient was offered or told that she can take apixaban and can be cardioverted. However cardioversion was not offered. She was admitted to the ICU floor. I was asked to see this patient to guide her treatment plan and management of atrial fibrillation. When I saw her this evening she was alert oriented and comfortable in bed with a heart rate of 90-110 beats per minute. She did not report any symptoms of chest pain chest pressure dizziness presyncope or syncope. ECHO was performed in the evening results were not obtained. She denied any fever chills any respiratory distress. She told me that she is not on anticoagulation. She was treated with a cardioversion in 2023. It was a CANDIDA guided cardioversion and her post CANDIDA ejection fraction was 40-45%. Repeat echo in April 2022 she had sinus rhythm with left ventricular ejection fraction of 75-80%. Patient has stopped Xarelto since then. Patient reports strong feelings against allopathic medication and prefers naturopathic therapies. Her other health issues include right Achilles tendinitis and right hand tremor. No reported stroke-like symptoms including motor or sensory loss no visual disturbance no loss of balance aphasia or expressive aphasia. Meds Home Medications and Allergies Home Medications ?Medication ?Instructions ?Recorded ?Confirmed ?Type thyroid (pork) 90 mg tablet 65 mg PO QDAY ##0 08/07/17 05/21/25 History ([place] Thyroid) carvedilol 3.125 mg tablet 3.125 mg PO BID 10/11/21 05/21/25 History Allergies Allergy/AdvReac Type Severity Reaction Status Date / Time latex (LATEX) Allergy Mild RASH Verified 02/08/24 09:51 Sulfa (Sulfonamide Allergy Verified 02/08/24 09:51 Antibiotics) Review of Systems Review of Systems ROS: Yes All systems reviewed with the patient and are negative except as otherwise documented Exam Vital Signs (past 8 hours): - 05/21/25 09:22 05/21/25 09:22 05/21/25 09:30 Temperature Pulse Rate 115 H 69 Respiratory Rate 19 19 Blood Pressure 126/99 H Pulse Oximetry 96 95 Oxygen Delivery Method Oxygen Flow Rate 05/21/25 09:30 05/21/25 09:45 05/21/25 09:45 Temperature Pulse Rate 115 H Respiratory Rate 17 Blood Pressure 109/61 112/57 L Pulse Oximetry 97 Oxygen Delivery Method Oxygen Flow Rate 05/21/25 10:00 05/21/25 11:00 05/21/25 11:10 Temperature Pulse Rate 93 H 108 H Respiratory Rate 13 19 Blood Pressure 128/78 Pulse Oximetry 96 98 Oxygen Delivery Method Room Air Oxygen Flow Rate 05/21/25 11:10 05/21/25 11:15 05/21/25 11:15 Temperature Pulse Rate 106 H 101 H Respiratory Rate 18 19 Blood Pressure 128/67 Pulse Oximetry 97 96 Oxygen Delivery Method Oxygen Flow Rate 05/21/25 11:30 05/21/25 11:31 05/21/25 11:31 Temperature Pulse Rate 112 H 115 H Respiratory Rate 22 21 Blood Pressure 125/65 Pulse Oximetry 95 95 Oxygen Delivery Method Oxygen Flow Rate 05/21/25 11:45 05/21/25 11:45 05/21/25 12:01 Temperature Pulse Rate 119 H 153 H Respiratory Rate 20 12 Blood Pressure 152/82 H Pulse Oximetry 95 Oxygen Delivery Method Oxygen Flow Rate 05/21/25 12:12 05/21/25 12:12 05/21/25 12:15 Temperature Pulse Rate 142 H 140 H Respiratory Rate 21 21 Blood Pressure 128/76 Pulse Oximetry Oxygen Delivery Method Oxygen Flow Rate 05/21/25 12:15 05/21/25 12:30 05/21/25 12:30 Temperature Pulse Rate 142 H Respiratory Rate 23 Blood Pressure 108/57 L 124/64 Pulse Oximetry Oxygen Delivery Method Oxygen Flow Rate 05/21/25 12:46 05/21/25 12:46 05/21/25 12:50 Temperature Pulse Rate 139 H 144 H Respiratory Rate 18 Blood Pressure 134/61 134/61 Pulse Oximetry Oxygen Delivery Method Oxygen Flow Rate 05/21/25 12:55 05/21/25 12:55 05/21/25 13:05 Temperature Pulse Rate 140 H 152 H Respiratory Rate 16 24 Blood Pressure 133/61 Pulse Oximetry 96 96 Oxygen Delivery Method Oxygen Flow Rate 05/21/25 13:06 05/21/25 13:06 05/21/25 13:30 Temperature Pulse Rate 153 H Respiratory Rate 20 Blood Pressure 131/62 131/81 Pulse Oximetry 97 Oxygen Delivery Method Oxygen Flow Rate 05/21/25 13:30 05/21/25 13:30 05/21/25 13:30 Temperature 97.1 F L Pulse Rate 143 H 143 H Respiratory Rate 19 19 Blood Pressure 131/81 Pulse Oximetry 98 98 Oxygen Delivery Method Room Air Oxygen Flow Rate 0 05/21/25 13:45 05/21/25 14:00 05/21/25 14:30 Temperature Pulse Rate 139 H 143 H Respiratory Rate 21 15 Blood Pressure 132/88 141/84 H Pulse Oximetry 96 96 Oxygen Delivery Method Room Air Oxygen Flow Rate 0 05/21/25 15:00 05/21/25 15:30 05/21/25 16:00 Temperature Pulse Rate 122 H 108 H 94 H Respiratory Rate 21 22 18 Blood Pressure 132/74 119/71 105/68 Pulse Oximetry 96 96 96 Oxygen Delivery Method Oxygen Flow Rate 05/21/25 16:00 05/21/25 16:30 Temperature Pulse Rate 84 Respiratory Rate 21 Blood Pressure 117/77 Pulse Oximetry 97 Oxygen Delivery Method Room Air Oxygen Flow Rate Oxygen Delivery Method Room Air Oxygen Flow Rate 0 Const General: cooperative, healthy appearing, comfortable, well developed and well groomed [facility] Head: normal to inspection Eyes General: appearance normal, both eyes and all related structures Neck Neck: normal visual inspection Chest Chest: normal inspection of the chest Resp Effort & Inspection: normal respiratory effort and able to speak in complete sentences Auscultation: clear to auscultation bilaterally Cardio Palpation: normal PMI Rhythm: abnormal rhythm Heart Sounds: S1 normal and S2 normal GI Inspection: normal to inspection Back/Spine/Pelvis Back: normal to inspection Skin General: no rashes or lesions noted Neuro General: patient alert, patient awake and patient oriented x3 Extrem General: normal to inspection, full ROM and capillary refill normal Objective ECG Impression: Telemetry : Atrial fibrillation with controlled ventricular rate. Imaging Echo: Radiologist's impression: Interpretation Summary 1) Mildly increased left ventricular thickness (concentric) with normal size, normal wall motion, and normal systolic function (EF 60-65%). 2) Normal right ventricular size and function. 3) No significant valvular abnormalities. 4) Compared to the Echo done 05/06/2024, no significant change. Labs 05/21/25 09:09 05/21/25 09:09 Labs: Laboratory Results - last 24 hr 05/21/25 05/21/25 09:09 10:46 WBC 10.5 RBC 5.05 Hgb 15.2 Hct 45.0 MCV 89.0 MCH 30.0 MCHC 33.7 RDW 14.4 Plt Count 328 Neut % (Auto) 69.2 Lymph % (Auto) 21.3 L [place] % (Auto) 7.9 Eos % (Auto) 1.1 L Baso % (Auto) 0.5 Neut # (Auto) 7300 H Lymph # (Auto) 2200 [place] # (Auto) 800 Eos # (Auto) 100 Baso # (Auto) 0 Sodium 139 Potassium 3.9 Chloride 105 Carbon Dioxide 24 BUN 18 H Creatinine 0.74 Estimated GFR > 60 BUN/Creatinine Ratio 24.3 H Glucose 137 H Calcium 9.4 Magnesium 2.0 Total Bilirubin 0.5 AST 29 ALT 22 Alkaline Phosphatase 75 Troponin I 0.037 H 0.029 NT-Pro-B Natriuret Pep 4130 H Total Protein 7.8 Albumin 4.6 Globulin 3.2 Albumin/Globulin Ratio 1.4 Lipase 75 TSH 3.01 Free T4 1.36 PFSH Medical History Anxiety about health Essential tremor Gloria Dinero virus infection Rosacea (~1994) Mumps (~1959) Measles (~1961) History of chicken pox (~1981) Tinnitus (~2008) Cataract (~2013) Surgical History H/O blepharoplasty (~2005) Status post arthroscopy Status post arthroscopy Family History Brother PTSD (post-traumatic stress disorder) Father Heart disease Mother Stroke Grandfather Brain aneurysm Grandmother Pneumonia Grandfather Heart attack Grandmother Stroke Social History marital status: household members: spouse 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) education level: college occupational status: employed travel history: other leisure activities: other other: WALK, TRAVEL Safety seatbelt use: always water heater temp set < 120 deg: Yes working smoke detector in home: Yes fire extinguisher in home: Yes carbon monox detector in home: Yes firearms in home: Yes firearms unloaded and locked: Yes do you feel safe at home: Yes Tobacco & Substance Use Smoking Status: Never smoker alcohol intake: current substance use type: does not use Diet and Exercise during the past year weight has: decreased > 10 lbs well-balanced diet: daily or most days caffeine: Yes (1/2 CUP COFFEE) eating out: rarely or never Type(s) of exercise: walking frequency: 3-4 times per week duration: 30-45 minutes/day Additional Social History additional social history: Vision deficiencies- cataracts awaiting surgery in spring Assessment & Plan Assessment and plan (1) Atrial fibrillation with rapid ventricular response: Status: Acute (2) Hypothyroidism: Qualifiers: Hypothyroidism type: unspecified Qualified Code(s): E03.9 - Hypothyroidism, unspecified Status: Chronic Plan We discussed several options for treating her atrial fibrillation. I am seeing her for the 1st time therefore I am not very comfortable about offering her cardioversion though her history states that her onset of atrial fibrillation was less than 48 hours. I would prefer a more conservative approach. I advised her to start taking Xarelto versus Eliquis for anticoagulation. Guidelines suggest at least 3 weeks of anticoagulation before CANDIDA guided cardioversion and then 4 weeks of anticoagulation post cardioversion. I advised her to follow up with her primary care provider to get her prescriptions or reach out to her primary ship steward for med management of paroxysmal atrial fibrillation Patient can be discharged home Xarelto 20 mg daily or Eliquis 5mg PO BID. Carvedilol 6.25 mg twice daily Follow-up with primary ship steward to schedule office visit followed by a CANDIDA guided cardioversion. TSH T3 levels and T4 levels if not recently obtained. Assessment & Plan narrative: 1. Atrial fibrillation with rapid ventricular rate. Patient was restarted on carvedilol 3.125 mg. Her heart rate is well controlled now and she is comfortable with no symptoms of chest pains shortness of breath no dizziness presyncope or syncope. She is right now lying comfortably in bed with stable blood pressures and heart rate. 2. Hypothyroidism 3. Hypertension 4. Heart failure with preserved ejection fraction. Time-Based Coding :: [TOTAL time 50minutes to review the chart and direct patient interaction. spent with patient and on the chart (including review of chart, obtaining history, exam, reviewing outside data, placing orders, documenting exam and treatment plan, and counseling patient) on [DATE].
--- NOTE | 2025-05-21 18:40 | P.HP_ITS ---
History of Present Illness
--- NOTE | 2025-05-21 18:40 | PM.HP.1 ---
History of Present Illness History of Present Illness Date Patient Seen: 05/21/25 Chief complaint: Per patient. In AFIB This morning Narrative: Chief complaint: Palpitations with atrial fibrillation and rapid ventricular response History of present illness: 70-year-old female history of hypothyroidism, atrial fibrillation on carvedilol and intermittent use of Eliquis, presents with chest tightness, lightheadedness, fatigue, weakness, started yesterday at 1:30 p.m. while she was getting her facial cosmetic treatment completed. She has since taken a baby aspirin and 1 dose Eliquis. Patient reports that she has been cardioverted in the past as medications did not work for her atrial fibrillation. Findings in the emergency department significant for EKG showing atrial fibrillation with rapid ventricular response with no ST segments or T-wave changes Troponin 0.029 Pro BNP 4130 Review of systems: No fever or chills rigors No weight loss or fatigue No cough No nausea vomiting diarrhea No paresthesia No paresis Physical exam: Very pleasant elderly female in no acute distress HEENT unremarkable Heart irregularly irregular rhythm Lungs clear Abdomen nontender bowel sounds present Extremities no edema Alert and oriented Neuro nonfocal Assessment and plan: Atrial fibrillation rapid ventricular response paroxysmal: Diltiazem infusion to control rate Bridging carvedilol and hopefully titrate off of diltiazem Anticoagulation Discharge once off diltiazem infusion Follow up with her circuit design engineer for a CANDIDA and DC cardioversion Appreciate 's expertise DVT prophylaxis Covered with anticoagulation Code status: Full code blue Disposition: Observation status discharge when weaned off of diltiazem drip Time based billin minutes were involved in the evaluation of this patient including [id number] evaluation physical examination discussion with ER provider and circuit design engineer review of objective laboratory electrocardiogram and imaging [facility] Medical History Anxiety about health Essential tremor Gloria Dinero virus infection Rosacea (~1994) Mumps (~1959) Measles (~1961) History of chicken pox (~1981) Tinnitus (~2008) Cataract (~2013) Surgical History H/O blepharoplasty (~2005) Status post arthroscopy Status post arthroscopy Family History Brother PTSD (post-traumatic stress disorder) Father Heart disease Mother Stroke Grandfather Brain aneurysm Grandmother Pneumonia Grandfather Heart attack Grandmother Stroke Social History marital status: household members: spouse 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) education level: college occupational status: employed travel history: other leisure activities: other other: WALK, TRAVEL seatbelt use: always water heater temp set < 120 deg: Yes working smoke detector in home: Yes fire extinguisher in home: Yes carbon monox detector in home: Yes firearms in home: Yes firearms unloaded and locked: Yes do you feel safe at home: Yes Smoking Status: Never smoker alcohol intake: current substance use type: does not use during the past year weight has: decreased > 10 lbs well-balanced diet: daily or most days caffeine: Yes (1/2 CUP COFFEE) eating out: rarely or never Type(s) of exercise: walking frequency: 3-4 times per week duration: 30-45 minutes/day additional social history: Vision deficiencies- cataracts awaiting surgery in spring [facility] Home Medications and Allergies Home Medications ?Medication ?Instructions ?Recorded ?Confirmed ?Type thyroid (pork) 90 mg tablet 65 mg PO QDAY ##0 08/07/17 05/21/25 History ([place] Thyroid) carvedilol 3.125 mg tablet 3.125 mg PO BID 10/11/21 05/21/25 History Allergies Allergy/AdvReac Type Severity Reaction Status Date / Time latex (LATEX) Allergy Mild RASH Verified 02/08/24 09:51 Sulfa (Sulfonamide Allergy Verified 02/08/24 09:51 Antibiotics) Exam Vital Signs (past 8 hours): - 05/21/25 11:00 05/21/25 11:10 05/21/25 11:10 Temperature Pulse Rate 108 H 106 H Respiratory Rate 19 18 Blood Pressure 128/78 Pulse Oximetry 98 97 Oxygen Delivery Method Room Air Oxygen Flow Rate 05/21/25 11:15 05/21/25 11:15 05/21/25 11:30 Temperature Pulse Rate 101 H 112 H Respiratory Rate 19 22 Blood Pressure 128/67 Pulse Oximetry 96 95 Oxygen Delivery Method Oxygen Flow Rate 05/21/25 11:31 05/21/25 11:31 05/21/25 11:45 Temperature Pulse Rate 115 H 119 H Respiratory Rate 21 20 Blood Pressure 125/65 Pulse Oximetry 95 95 Oxygen Delivery Method Oxygen Flow Rate 05/21/25 11:45 05/21/25 12:01 05/21/25 12:12 Temperature Pulse Rate 153 H 142 H Respiratory Rate 12 21 Blood Pressure 152/82 H Pulse Oximetry Oxygen Delivery Method Oxygen Flow Rate 05/21/25 12:12 05/21/25 12:15 05/21/25 12:15 Temperature Pulse Rate 140 H Respiratory Rate 21 Blood Pressure 128/76 108/57 L Pulse Oximetry Oxygen Delivery Method Oxygen Flow Rate 05/21/25 12:30 05/21/25 12:30 05/21/25 12:46 Temperature Pulse Rate 142 H 139 H Respiratory Rate 23 18 Blood Pressure 124/64 Pulse Oximetry Oxygen Delivery Method Oxygen Flow Rate 05/21/25 12:46 05/21/25 12:50 05/21/25 12:55 Temperature Pulse Rate 144 H 140 H Respiratory Rate 16 Blood Pressure 134/61 134/61 Pulse Oximetry 96 Oxygen Delivery Method Oxygen Flow Rate 05/21/25 12:55 05/21/25 13:05 05/21/25 13:06 Temperature Pulse Rate 152 H 153 H Respiratory Rate 24 20 Blood Pressure 133/61 Pulse Oximetry 96 97 Oxygen Delivery Method Oxygen Flow Rate 05/21/25 13:06 05/21/25 13:30 05/21/25 13:30 Temperature Pulse Rate 143 H Respiratory Rate 19 Blood Pressure 131/62 131/81 Pulse Oximetry 98 Oxygen Delivery Method Room Air Oxygen Flow Rate 05/21/25 13:30 05/21/25 13:30 05/21/25 13:45 Temperature 97.1 F L Pulse Rate 143 H Respiratory Rate 19 Blood Pressure 131/81 Pulse Oximetry 98 Oxygen Delivery Method Room Air Oxygen Flow Rate 0 05/21/25 14:00 05/21/25 14:30 05/21/25 15:00 Temperature Pulse Rate 139 H 143 H 122 H Respiratory Rate 21 15 21 Blood Pressure 132/88 141/84 H 132/74 Pulse Oximetry 96 96 96 Oxygen Delivery Method Oxygen Flow Rate 0 05/21/25 15:30 05/21/25 16:00 05/21/25 16:00 Temperature Pulse Rate 108 H 94 H Respiratory Rate 22 18 Blood Pressure 119/71 105/68 Pulse Oximetry 96 96 Oxygen Delivery Method Room Air Oxygen Flow Rate 05/21/25 16:30 05/21/25 17:00 05/21/25 17:34 Temperature Pulse Rate 84 102 H 125 H Respiratory Rate 21 22 18 Blood Pressure 117/77 Pulse Oximetry 97 97 Oxygen Delivery Method Oxygen Flow Rate 05/21/25 18:00 Temperature Pulse Rate 99 H Respiratory Rate 21 Blood Pressure 97/66 Pulse Oximetry Oxygen Delivery Method Oxygen Flow Rate Oxygen Delivery Method Room Air Oxygen Flow Rate 0 Objective Labs 05/21/25 09:09 05/21/25 09:09 Labs: Laboratory Results - last 24 hr 05/21/25 05/21/25 09:09 10:46 WBC 10.5 RBC 5.05 Hgb 15.2 Hct 45.0 MCV 89.0 MCH 30.0 MCHC 33.7 RDW 14.4 Plt Count 328 Neut % (Auto) 69.2 Lymph % (Auto) 21.3 L [place] % (Auto) 7.9 Eos % (Auto) 1.1 L Baso % (Auto) 0.5 Neut # (Auto) 7300 H Lymph # (Auto) 2200 [place] # (Auto) 800 Eos # (Auto) 100 Baso # (Auto) 0 Sodium 139 Potassium 3.9 Chloride 105 Carbon Dioxide 24 BUN 18 H Creatinine 0.74 Estimated GFR > 60 BUN/Creatinine Ratio 24.3 H Glucose 137 H Calcium 9.4 Magnesium 2.0 Total Bilirubin 0.5 AST 29 ALT 22 Alkaline Phosphatase 75 Troponin I 0.037 H 0.029 NT-Pro-B Natriuret Pep 4130 H Total Protein 7.8 Albumin 4.6 Globulin 3.2 Albumin/Globulin Ratio 1.4 Lipase 75 TSH 3.01 Free T4 1.36 Assessment & Plan Time-Based Coding :: [TOTAL MINUTES] spent with patient and on the chart (including review of chart, obtaining history, exam, reviewing outside data, placing orders, documenting exam and treatment plan, and counseling patient) on [DATE]. Quality VTE Deep Vein Thrombosis/Pulmonary Embolism Present on Admission: No
[2025-05-21] MEDS: APIXABAN 5 MG TABLET PO (21:22)
[2025-05-22] VITALS (8 sets, daily range): BP systolic 102–151; BP diastolic 56–105; PULSE 70–131; RESP 15–19; TEMP 36.6–37.1; O2SAT 93–96
[2025-05-22] MEDS: THYROID, PORK 30 MG TABLET 45 MG PO (06:29)
--- NOTE | 2025-05-22 08:14 | CM.DANOTE ---
Initial DCP Assessment Note. Review EMR and PT Interview. Met with patient at bedside to discuss discharge needs.PT is alert x 4 sitting up in bed.. No acute distress. Independent. Lives with . Payor:??MCR PCP: Summary & Plan:?70 yo female arrived to ED c/o chest tightness and lightheadedness, fatigue. Admitted OBS, Dx with A.Fib with RVR. Plan: Dilt gtt for HR management and Cardiology consult.. Discharge Planning/Care Management CM Discharge Assessment Start: 05/21/25 12:42 Freq: Status: Active Protocol: Document 05/22/25 08:13 (Rec: 05/22/25 08:14 [id number]) Discharge Planning Assessment Assigned Discharge Lorraine Elder RN CM Distribution Operations Supervisor Provider Dr. Kaur Insurance Medicare Advance Directives? No Advance Directives No on File History Provided By Patient,Medical Record Prior Living House Arrangements Household Members spouse Type of Drives own vehicle transporation used prior to admit Barriers to No Discharge Discharge Plan Home Transportation Arrangement Referrals Initiated None needed Review Status In Process Please Provide Date 05/22/25 Initial DC Assessment Was Performed Next Review Type Continued Stay Review
[2025-05-22] MEDS: APIXABAN 5 MG TABLET PO (09:19)
--- NOTE | 2025-05-22 12:02 | P.DS_ITS ---
History of Present Illness
--- NOTE | 2025-05-22 12:02 | PM.DS.1 ---
History of Present Illness History of Present Illness Date Patient Seen: 05/22/25 Chief complaint: Per patient. In AFIB This morning Narrative: Chief complaint: Palpitations with atrial fibrillation and rapid ventricular response History of present illness: 70-year-old female history of hypothyroidism, atrial fibrillation on carvedilol and intermittent use of Eliquis, presents with chest tightness, lightheadedness, fatigue, weakness, started yesterday at 1:30 p.m. while she was getting her facial cosmetic treatment completed. She has since taken a baby aspirin and 1 dose Eliquis. Patient reports that she has been cardioverted in the past as medications did not work for her atrial fibrillation. Findings in the emergency department significant for EKG showing atrial fibrillation with rapid ventricular response with no ST segments or T-wave changes Troponin 0.029 Pro BNP 4130 hospital course: 05/22: Heart rate de-escalated patient was adjusted to 6.125 mg of Coreg twice a day and Eliquis resumed patient will follow up with her waste recycler Dr. Sandi deleon for a CANDIDA and DC cardioversion Review of systems: No fever or chills rigors No weight loss or fatigue No cough No nausea vomiting diarrhea No paresthesia No paresis Physical exam: Very pleasant elderly female in no acute distress HEENT unremarkable Heart irregularly irregular rhythm Lungs clear Abdomen nontender bowel sounds present Extremities no edema Alert and oriented Neuro nonfocal Assessment and plan: Atrial fibrillation rapid ventricular response paroxysmal: Diltiazem infusion to control rate Bridging carvedilol and hopefully titrate off of diltiazem Anticoagulation Discharge once off diltiazem infusion Follow up with her waste recycler for a CANDIDA and DC cardioversion Appreciate 's expertise DVT prophylaxis Covered with anticoagulation Code status: Full code blue Disposition: Observation status discharge when weaned off of diltiazem drip Time based billin minutes were involved in the evaluation of this patient including [id number] evaluation physical examination discussion with ER provider and waste recycler review of objective laboratory electrocardiogram and imaging Discharge Providers Provider Date of admission: 05/21/25 12:32 Discharge Date: 05/22/25 Primary care physician: Nilam Larson PA-C Discharge provider: James Ellison MD Exam Vital Signs (past 8 hours): - 05/22/25 06:00 05/22/25 07:00 05/22/25 08:00 Temperature 98.4 F Pulse Rate 85 70 71 Respiratory Rate 18 19 19 Blood Pressure 113/79 Pulse Oximetry 95 93 95 Oxygen Flow Rate 0 05/22/25 09:00 05/22/25 09:19 05/22/25 10:00 Temperature 98.0 F Pulse Rate 71 131 H Respiratory Rate 15 Blood Pressure 151/89 H 135/105 H Pulse Oximetry 95 Oxygen Flow Rate Oxygen Delivery Method Room Air Oxygen Flow Rate 0 Objective Labs 05/21/25 09:09 05/21/25 09:09 Labs: Laboratory Results - last 24 hr 05/21/25 09:09 Free T4 1.36 [facility] Medical History Anxiety about health Essential tremor Gloria Dinero virus infection Rosacea (~1994) Mumps (~1959) Measles (~1961) History of chicken pox (~1981) Tinnitus (~2008) Cataract (~2013) Surgical History H/O blepharoplasty (~2005) Status post arthroscopy Status post arthroscopy Family History Brother PTSD (post-traumatic stress disorder) Father Heart disease Mother Stroke Grandfather Brain aneurysm Grandmother Pneumonia Grandfather Heart attack Grandmother Stroke Social History marital status: household members: spouse 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) education level: college occupational status: employed travel history: other leisure activities: other other: WALK, TRAVEL seatbelt use: always water heater temp set < 120 deg: Yes working smoke detector in home: Yes fire extinguisher in home: Yes carbon monox detector in home: Yes firearms in home: Yes firearms unloaded and locked: Yes do you feel safe at home: Yes Smoking Status: Never smoker alcohol intake: current substance use type: does not use during the past year weight has: decreased > 10 lbs well-balanced diet: daily or most days caffeine: Yes (1/2 CUP COFFEE) eating out: rarely or never Type(s) of exercise: walking frequency: 3-4 times per week duration: 30-45 minutes/day additional social history: Vision deficiencies- cataracts awaiting surgery in spring Discharge Plan Discharge Plan Patient Disposition: Home Discharge orders & Medications Prescriptions: New Eliquis 5 mg Tablet 5 mg PO BID Qty: 60 0RF carvedilol [Coreg] 6.25 mg tablet 6.25 mg PO BID Qty: 60 0RF Rx Instructions: must administer with a meal/food Continued thyroid (pork) [[place] Thyroid] 90 MG tablet 65 mg PO QDAY Qty: 0 Discontinued carvedilol 3.125 mg tablet 3.125 mg PO BID Patient Comments: take 1 tablet by mouth twice a day with meals Follow up/Referrals: Nilam Larson PA-C [Primary Care Provider, Medical] Visit Report/Discharge Packet Stand Alone Forms: Patient Portal/API, Stroke Signs & Symptoms Discharge Data Primary Care Provider: Nilam Larson Attending Provider: James Ellison Admit Date/Time: 05/21/25 12:32 Quality VTE Deep Vein Thrombosis/Pulmonary Embolism Present on Admission: No
--- NOTE | 2025-05-22 13:55 | PC.NURSE ---
Was advised by Dr. Nixon at 1230 that patient is okay to discharge via Dr. Dawson orders. Discussed patient was still on 3 mg of diltiazem via IV with HRs in the 110s-130s and was advised to shut off diltiazem. Shut off diltiazem at 1230. Notified Dr[address] Nixon of patients tachycardia (HR 130s-150s) while asleep. Was advised to continue with current discharge plans due to patients preference.
== END 2025-05-22 15:05 | disposition home or self-care (01) ==
LOC: ED 12:33 → AC 12:34 → ICU 13:20
PROVIDERS: Admitting Provider Internal Medicine; Emergency Provider Family Medicine; Family Provider Physician Assistant; PCP Physician Assistant; Referring Provider Family Medicine; Visit Provider Internal Medicine
DX: I48.0 Paroxysmal atrial fibrillation (principal); I11.0 Hypertensive heart disease with heart failure; I50.30 Unspecified diastolic (congestive) heart failure; E03.9 Hypothyroidism, unspecified; H26.9 Unspecified cataract
CPT/HCPCS: 36415; 71045; 80053; 81003; 83690; 83735; 83880; 84439; 84443; 84484; 85025; 93005; 93306; 96365; 96366; 96375; 99284; G0378; J7050